=== PATIENT | female | born 1970 | race Caucasian/White ===

== ENCOUNTER 2017-01-08 13:45 | Emergency (ER) | payer MEDICAID ==
[~2017-01-08] VITALS: Wt 82.0 kg
[~2017-01-08 13:45] MED LIST: HYDR-762 PO; IBUP-1542 PO; PENI500T PO
--- NOTE | 2017-01-08 14:07 | ERD ---
ER Documentation Chief Complaint Chief Complaint L THUMB LAC TODAY HPI Patient presents one hour status post car door versus right thumb. Patient was getting out of the car when the door slammed on his. Tetanus status unknown. Denies loss of range of motion, numbness, tingling, change in sensation. Has not taken any medications to relieve the symptoms. Denies diabetes and asthma. Patient has no other complaints and describes no other associated manifestations. Nursing notes have been reviewed and are consistent with history given. ROS All systems reviewed and are negative except as per history of present illness. Medications Home Meds Active Scripts Cephalexin* (Keflex*) 500 Mg Capsule, 500 MG PO QID for 7 Days, CAP Prov:GLORIA EUGENE PA-C 01/08/17 Penicillin V Potassium* (Penicillin V K*) 500 Mg Tab, 500 MG PO QID for 7 Days, TAB Prov:SHERYL CRANE MD 04/20/15 Hydrocodone Bit-Acetaminophen* ([place]*) 10-325 Mg Tablet, 1 TAB PO Q6 Y for PAIN , #7 TAB Prov:SHERYL CRANE MD 04/20/15 Ibuprofen* (Motrin*) 600 Mg Tab, 600 MG PO Q6H Y for PAIN AND OR ELEVATED TEMP, #30 TAB Prov:SHERYL CRANE MD 04/20/15 Allergies Allergies: Coded Allergies: No Known Allergy (Unverified , 04/20/15) PMhx/Soc History of Surgery: No Anesthesia Reaction: No Hx Neurological Disorder: No Hx Respiratory Disorders: No Hx Cardiac Disorders: No Hx Psychiatric Problems: No Hx Miscellaneous Medical Probl: No Hx Alcohol Use: No Hx Substance Use: No Hx Tobacco Use: No Smoking Status: Never smoker Physical Exam Vitals Vital Signs Date Time Temp Pulse Resp B/P Pulse Ox O2 Delivery O2 Flow Rate FiO2 01/08/17 13:47 98.0 78 18 111/70 98 Physical Exam Const: No acute distress. Head: Atraumatic Eyes: Normal Conjunctiva ENT: Normal External Ears, Nose and Mouth. Neck: Full range of motion..~ No meningismus. Resp: Clear to auscultation bilaterally Cardio: Regular rate and rhythm, no murmurs Abd: Soft, non tender, non distended. Normal bowel sounds Skin: 4 cm lunar avulsion laceration to the right palmar side of thumb. Starting just distal to the DIP. Back: No midline or flank tenderness Ext: No cyanosis, or edema. Neurovascularly intact. Full range of motion. Tendons intact. Neur: Awake and alert Psych: Normal Mood and Affect Results 24 hrs Current Medications Medications (Trade) Dose Ordered Sig/Cristofer Route PRN Reason Start Time Stop Time Status Last Admin Dose Admin Lidocaine (Xylocaine 1% (Mdv) 20 ml) 20 ml ONCE ONCE SC 01/08/17 14:30 01/08/17 14:31 DC Diphtheria/ Tetanus/Acell Pertussis (Adacel) 0.5 ml ONCE ONCE IM* 01/08/17 14:30 01/08/17 14:31 DC 01/08/17 14:14 Cephalexin (Keflex) 500 mg ONCE ONCE PO 01/08/17 15:30 01/08/17 15:31 DC 01/08/17 15:38 Procedures/MDM 46-year-old female presenting one hour status post car door versus right thumb. X-ray was obtained and showed oblique nondisplaced fracture of the base of the distal phalanx. Laceration was superficial. Repaired with 6 4-0 nylon simple sutures. No complications. Neurovascularly and tendons intact before and after the procedure. Cap refill less than 2 seconds. I have no suspicion for neurovascular compromise. Metal splint has been applied. Neurovascularly intact after application. Keflex 500 mg p.o. was given in the ED. Prescription for Keflex 500 mg p.o. twice daily 7 days was given. I presented the case my attending Dr. Garza who agrees with the assessment and plan. Departure Diagnosis: Primary Impression: Laceration Condition: Stable Additional Instructions: You were seen in the emergency department for your laceration which has been closed. Your wound has been cleaned and covered with antibiotic ointment. Please keep this dressing on for 12 hours. After 12 hours take the dressing down and gently clean the wound with ONLY soap and water. If you were given antibiotics, complete the course of treatment as prescribed. Look for signs of infection such as increasing redness, swelling, pain or drainage of pus (yellow/ green fluid). If you see signs of infection, please return to the emergency department immediately. If there are no signs of infection, cover your wound with antibiotic ointment and reapply a dressing. You will form a scar. To keep from scarring too dark, keep your wound covered and out of the sun for the next 6-12 months. Consider using OTC anti-scar creams such as Mederma. Return to the ED for a wound check in 2 days and again for suture removal in 10-14 days. GLORIA EUGENE PA-C Jan 08, 2017 14:07
[2017-01-08] MEDS ORDERED: LIDOCAINE 1% (MDV) 20 ML INJ SC ONE (14:30)
[2017-01-08] MEDS ORDERED: DIPHTH/TET/ACEL PERTUSS (ADULT) 0.5 ML VIAL IM* ONE (14:30)
--- NOTE | 2017-01-08 14:49 | RADRPT ---
PROCEDURE: XR Right Thumb CLINICAL INDICATION: Trauma TECHNIQUE: AP, oblique, and lateral radiographs were submitted. COMPARISON: None FINDINGS: Osseous structures: An oblique nondisplaced fracture is seen through the proximal shaft of the dista l phalanx of the right thumb. The remaining osseous elements appear intact. Joint spaces: are well maintained, with no significant spurring, erosion or joint effusion evident. Soft tissues: appear unremarkable. IMPRESSION: Nondisplaced oblique fracture through base of distal phalanx of the right thumb. Physician Jasmina Date Time Electronically viewed and signed by Physician Jasmina on 01/08/2017 14:49 /
[2017-01-08] MEDS ORDERED: CEPHALEXIN 500 MG CAP PO ONE (15:30)
[2017-01-08] MEDS ORDERED: CEPH-443 PO (15:37)
== END 2017-01-08 16:01 | disposition home or self-care (01) ==
LOC: FTE 13:45
DX: S61.011A Laceration without foreign body of right thumb without damage to nail, initial encounter (principal); W23.0XXA Caught, crushed, jammed, or pinched between moving objects, initial encounter; Y92.9 Unspecified place or not applicable; Z23 Encounter for immunization
CPT/HCPCS: 12002; 73140; 90471; 90715; Z7502; Z7610

== ENCOUNTER 2017-01-19 10:39 | Emergency (ER) | payer MEDICAID ==
[~2017-01-19] VITALS: Ht 149.9 cm; Wt 80.9 kg
[~2017-01-19 10:39] MED LIST changes: +CEPH-443 PO
[2017-01-19 10:42] VITALS: Ht 149.9 cm; Wt 80.9 kg
--- NOTE | 2017-01-19 13:43 | ERD ---
ER Documentation Chief Complaint Chief Complaint pt bib self for suture removal to right thumb, HPI 46-year-old female here for removal of sutures in her right thumb. Patient sustained injury to her right thumb on 01/08/2017. Still have pain under her nail bed, and at the interphalangeal joint of the right thumb. Denies fever chills. Denies wound erythema or exudates. ROS All systems reviewed and are negative except as per history of present illness. Medications Home Meds Active Scripts Cephalexin* (Keflex*) 500 Mg Capsule, 500 MG PO QID for 7 Days, CAP Prov:GLORIA EUGENE PA-C 01/08/17 Penicillin V Potassium* (Penicillin V K*) 500 Mg Tab, 500 MG PO QID for 7 Days, TAB Prov:SHERYL CRANE MD 04/20/15 Hydrocodone Bit-Acetaminophen* ([place]*) 10-325 Mg Tablet, 1 TAB PO Q6 Y for PAIN , #7 TAB Prov:SHERYL CRANE MD 04/20/15 Ibuprofen* (Motrin*) 600 Mg Tab, 600 MG PO Q6H Y for PAIN AND OR ELEVATED TEMP, #30 TAB Prov:SHERYL CRANE MD 04/20/15 Allergies Allergies: Coded Allergies: No Known Allergy (Unverified , 04/20/15) PMhx/Soc Medical and Surgical Hx: pt denies Medical Hx, pt denies Surgical Hx History of Surgery: No Anesthesia Reaction: No Hx Neurological Disorder: No Hx Respiratory Disorders: No Hx Cardiac Disorders: No Hx Psychiatric Problems: No Hx Miscellaneous Medical Probl: No Hx Alcohol Use: No Hx Substance Use: No Hx Tobacco Use: No Smoking Status: Never smoker Physical Exam Vitals Vital Signs Date Time Temp Pulse Resp B/P Pulse Ox O2 Delivery O2 Flow Rate FiO2 01/19/17 10:42 98.3 71 18 158/76 98 Physical Exam General: Well-developed, well-nourished, conscious and coherent, in no distress Skin: Warm and dry without rash, good texture and turgor Head: Normocephalic without evidence of trauma Eyes: Sclera and conjunctivae normal; pupils equal, round, and reactive to light; extraocular movements are intact Chest: Normal AP diameter. Good expansion without retractions. Nontender. Lungs are clear to auscultate bilaterally with good tidal volume Heart: Regular rate and rhythm. No murmur, rub, or gallops heard Abdomen: Soft and nontender without masses, guarding, or rebound. Bowel sounds are active. No hepatosplenomegaly Back: Without spinal or CVA tenderness Pelvis: Nontender to palpation and stable to compression Extremities: A flap of skin at the ventral aspect of the right thumb, overlying the distal phalanx. The flap has retracted from the sutures. Old subungual hematoma noted, which large amount of dried blood under the nail. Limited range of motion at the interphalangeal joint of the right thumb. Full range of motion otherwise. Good strength bilaterally. No clubbing, cyanosis, or edema. Peripheral pulses are intact. Sensation intact Neuro: Alert and oriented 4, GCS 15. Cranial nerves grossly intact. Motor and sensory exams nonfocal. Moves all extremities. Speech clear. Gait normal Procedures/MDM Suture Removal by me: Sutures removed with tweezers and scissors without incident. Wound shows no evidence of infection, foreign body, neurologic injury, vascular injury, open joint or tendon laceration. I removed the skin using scissors. Review of patient medical record indicated the patient had a fracture at the base of the distal phalanx. She is not wearing her finger splint. I placed the splint back on the patient, and advised her to keep the splint on at all times. Patient appears well, stable for discharge and outpatient management. Medical decision making shared with patient and family. Education provided to patient and family. Patient and family expressed understanding of the plan. Medications on discharge: None. Follow-up: Primary care provider in 2-3 days or return to ED if worse. Disclaimer: Inadvertent spelling and grammatical errors are likely due to EHR/ dictation software use and do not reflect on the overall quality of patient care. Also, please note that the electronic time recorded on this note does not necessarily reflect the actual time of the patient encounter. Departure Diagnosis: Primary Impression: Encounter for removal of sutures Condition: Stable Patient Instructions: Suture Removal, No Complication [facility]errals: [facility] Usted se ulloa hecho un examen mdico de control que le indica que no est en inés condicin que requiera tratamiento urgente en el Departamento de Emergencia. Un estudio ms profundo y el tratamiento de chopra condicin pueden esperar sin ningn riesgo hasta que usted sea atendida/o en el consultorio de chopra mdico o inés cl blayne. Es responsabilidad suya arreglar inés rubén para el seguimiento del sania. MANEJO DE CONDICIONES NO URGENTES EN EL FUTURO 1) Si usted tiene un mdico de atencin primaria: Usted debera llamar a chopra mdico de atencin primaria antes de venir al departamento de emergencia. Despus de las horas de consultorio, chopra doctor o chopra asociado/a est disponible por telfono. El mdico o enfermero de eloisa en el servicio telefnico puede asesorarle por biju medio para atender el problema, o sania contrario se puede programar inés rubén. 2) Si usted no tiene un mdico de atencin primaria: Llame al mdico o clnica de referencia que aparece abajo kera las horas de consultorio para hacer inés rubén para que le vean. CLINICAS: [place] [id number] [phone] [facility] [phone] [facility]. [facility] [phone] [facility]. [place] [id number] [phone] [facility]. [place] [id number] [phone] [facility]. [phone] [address] Additional Instructions: Llame al doctor MAANA y wm inés RUBÉN PARA DENTRO DE 2-3 SMALL.Dgale a la secretaria que nosotros le instruimos hacer esta rubén.Avise o llame si chopra condicin se empeora antes de la rubén. Regresa aqui si peor o no mejor. IGNACIA FONG NP Jan 19, 2017 13:34
== END 2017-01-19 12:41 | disposition home or self-care (01) ==
LOC: FTE 10:39
DX: Z48.02 Encounter for removal of sutures (principal)
CPT/HCPCS: 99281

== ENCOUNTER 2018-05-29 08:33 | Inpatient (IN) | payer MEDICAID ==
[~2018-05-29] VITALS: Ht 152.4 cm; Wt 83.0 kg
[2018-05-29] MEDS ORDERED: ONDANSETRON 4 MG INJ IV STA ×2 (08:55→12:49)
[2018-05-29] MEDS ORDERED: morphine 4 MG/ML VIAL IV STA (08:55)
[2018-05-29] MEDS ORDERED: PIPER-TAZO 3.375 GM IV (PMX) 100 ML IVPB STA (11:00)
[2018-05-29] MEDS ORDERED: SODIUM CHLORIDE 0.9% 1L BAG IV* STA (11:00)
[2018-05-29] MEDS ORDERED: ASPI1TAB31 PO (11:39)
[2018-05-29] MEDS ORDERED: IBUP-1982 PO (11:40)
[2018-05-29] MEDS ORDERED: ACETAMINOPHEN 650 MG SUPP PR PRN (12:00)
[2018-05-29] MEDS ORDERED: NACL 0.9% 3 ML SYG IV SCH (12:00)
[2018-05-29] MEDS ORDERED: ACETAMINOPHEN 325 MG TAB PO PRN (12:00)
[2018-05-29] MEDS ORDERED: ONDANSETRON 4 MG INJ IV PRN (12:00)
--- NOTE | 2018-05-29 12:24 | ERD ---
ER Documentation Chief Complaint Chief Complaint ap x 3 days HPI Patient is a 47-year-old female with a history of migraine headaches who presents with abdominal pain. The patient says that she has left lower quadrant abdominal pain for the past 3 days. The pain comes and goes. She tried Tylenol for pain. She has had fevers as well. She denies vomiting or diarrhea. Upon review of old medical records this is the patient's seventh visit to the ER since 2011. Her primary doctor is Dr. Lentz. ROS All systems reviewed and are negative except as per history of present illness. Medications Home Meds Reported Medications Ibuprofen* (Ibuprofen*) 200 Mg Capsule, 200 MG PO NEEDED PRN for PAIN, CAP 05/29/18 Aspirin/Acetaminophen/Caffeine (Excedrin Migraine Caplet) 1 Each Tablet, 1 EACH PO NEEDED, TAB 05/29/18 Discontinued Scripts Cephalexin* (Keflex*) 500 Mg Capsule, 500 MG PO QID for 7 Days, CAP Prov:GLORIA EUGENE PA-C 01/08/17 Penicillin V Potassium* (Penicillin V K*) 500 Mg Tab, 500 MG PO QID for 7 Days, TAB Prov:SHERYL CRANE MD 04/20/15 Hydrocodone Bit-Acetaminophen* ([place]*) 10-325 Mg Tablet, 1 TAB PO Q6 PRN for PAIN, #7 TAB Prov:SHERYL CRANE MD 04/20/15 Ibuprofen* (Motrin*) 600 Mg Tab, 600 MG PO Q6H PRN for PAIN AND OR ELEVATED TEMP, #30 TAB Prov:SHERYL CRANE MD 04/20/15 Allergies Allergies: Coded Allergies: No Known Allergy (Unverified , 05/29/18) PMhx/Soc History of Surgery: No Anesthesia Reaction: No Hx Neurological Disorder: Yes (migraines) Hx Respiratory Disorders: No Hx Cardiac Disorders: No Hx Psychiatric Problems: No Hx Miscellaneous Medical Probl: No Hx Alcohol Use: No Hx Substance Use: No Hx Tobacco Use: No Smoking Status: Never smoker FmHx Family History: No diabetes Physical Exam Vitals Vital Signs Date Temp Pulse Resp B/P (MAP) Pulse Ox O2 O2 Flow FiO2 Time Delivery Rate 05/29/18 100.2 90 16 177/101 98 Room Air 11:55 (126) 05/29/18 98.8 90 18 145/78 99 08:35 (100) Physical Exam Const: No acute distress Head: Atraumatic Eyes: Normal Conjunctiva ENT: Normal External Ears, Nose and Mouth. Neck: Full range of motion. No meningismus. Resp: Clear to auscultation bilaterally Cardio: Regular rate and rhythm, no murmurs Abd: Soft, left lower quadrant tenderness to palpation with guarding Skin: No petechiae or rashes Back: No midline or flank tenderness Ext: No cyanosis, or edema Neur: Awake and alert Psych: Normal Mood and Affect Result Diagram: 05/29/18 0858 05/29/18 0858 Results 24 hrs Laboratory Tests Test 05/29/18 08:58 05/29/18 11:23 White Blood Count 13.3 10^3/ul Red Blood Count 4.74 10^6/ul Hemoglobin 13.3 g/dl Hematocrit 40.4 % Mean Corpuscular Volume 85.2 fl Mean Corpuscular Hemoglobin 28.1 pg Mean Corpuscular Hemoglobin Concent 32.9 g/dl Red Cell Distribution Width 12.8 % Platelet Count 249 10^3/UL Mean Platelet Volume 9.9 fl Immature Granulocytes % 0.700 % Neutrophils % 78.9 % Lymphocytes % 13.8 % Monocytes % 5.4 % Eosinophils % 0.9 % Basophils % 0.3 % Nucleated Red Blood Cells % 0.0 /100WBC Immature Granulocytes # 0.090 10^3/ul Neutrophils # 10.5 10^3/ul Lymphocytes # 1.8 10^3/ul Monocytes # 0.7 10^3/ul Eosinophils # 0.1 10^3/ul Basophils # 0.0 10^3/ul Nucleated Red Blood Cells # 0.0 10^3/ul Prothrombin Time 12.8 Sec Prothrombin Time Ratio 1.0 INR International Normalized Ratio 0.95 Activated Partial Thromboplast Time 38.8 Sec Urine Color YELLOW Urine Clarity CLEAR Urine pH 6.0 Urine Specific [place] 1.015 Urine Ketones NEGATIVE mg/dL Urine Nitrite NEGATIVE mg/dL Urine Bilirubin NEGATIVE mg/dL Urine Urobilinogen NEGATIVE mg/dL Urine Leukocyte Esterase NEGATIVE [place]/ul Urine Microscopic RBC 0 /HPF Urine Microscopic WBC 0 /HPF Urine Hemoglobin 2+ mg/dL Urine Glucose NEGATIVE mg/dL Urine Total Protein NEGATIVE mg/dl Sodium Level 145 mmol/L Potassium Level 3.5 mmol/L Chloride Level 104 mmol/L Carbon Dioxide Level 27 mmol/L Anion Gap 14 Blood Urea Nitrogen 9 mg/dl Creatinine 0.72 mg/dl Est Glomerular Filtrat Rate mL/min > 60 mL/min Glucose Level 174 mg/dl Calcium Level 9.0 mg/dl Total Bilirubin 1.0 mg/dl Direct Bilirubin 0.00 mg/dl Indirect Bilirubin 1.0 mg/dl Aspartate Amino Transf (AST/SGOT) 16 IU/L Alanine Aminotransferase (ALT/SGPT) 7 IU/L Alkaline Phosphatase 99 IU/L Total Protein 7.7 g/dl Albumin 4.1 g/dl Globulin 3.60 g/dl Albumin/Globulin Ratio 1.13 Lipase 67 U/L Serum HCG, Qualitative NEGATIVE Lactic Acid Level 0.8 mmol/L Current Medications Medications Dose Sig/Cristofer Start Time Status Last (Trade) Ordered Route PRN Stop Time Admin Dose Reason Admin Morphine 4 mg ONCE STAT 05/29/18 DC 05/29/18 Sulfate IV 08:55 09:01 (morphine) 05/29/18 08:56 Ondansetron 4 mg ONCE STAT 05/29/18 DC 05/29/18 HCl (Zofran IV 08:55 09:01 Inj) 05/29/18 08:56 Sodium 2,670 ml BOLUS OVER 2 05/29/18 DC 05/29/18 Chloride HOURS STAT 11:00 11:26 (NS) IV* 05/29/18 11:01 Piperacillin 100 ml @ ONCE STAT 05/29/18 DC 05/29/18 Sod/ 200 mls/hr IVPB 11:00 11:45 Tazobactam 05/29/18 11:29 Sod Ondansetron 4 mg BRIDGE ORDER 05/29/18 HCl (Zofran PRN IV 12:00 Inj) NAUSEA/VOMITI 05/30/18 11:59 NG 650 mg ER BRIDGE 05/29/18 Acetaminophen PRN PO 12:00 (Tylenol .MILD PAIN 05/30/18 11:59 Tab) 1-3 OR TEMP 50 ml @ Q8 IVPB 05/29/18 Meropenem/Sod 100 mls/hr 14:00 ium Chloride Sodium 1,000 ml @ Q10H IV 05/29/18 Chloride 100 mls/hr 11:34 IV Flush 3 ml PER 05/29/18 (NS 3 ml) PROTOCOL IV 12:00 Ondansetron 4 mg Q6H PRN 05/29/18 HCl (Zofran IV 12:00 Inj) NAUSEA/VOMITI NG 650 mg Q6H PRN 05/29/18 Acetaminophen AL .PAIN 1-3 12:00 (Tylenol OR TEMP Supp) Morphine 2 mg Q4H PRN 05/29/18 Sulfate IV .SEVERE 12:00 (morphine) PAIN 7-10 Famotidine 20 mg Q12 IV 05/29/18 (Pepcid Iv) 21:00 Procedures/MDM CT abdomen pelvis shows acute diverticulitis with localized perforation per radiology. Chest x-ray read by radiology. EKG read by me: Rate/Rhythm: Regular rate and rhythm at a normal rate Intervals: Normal Impression: No evidence of ischemia or arrhythmia Patient is a 47-year-old female who presents with perforated diverticulitis. Blood cultures were drawn and lactic acid was normal. The patient was given 30 mils per kilogram normal saline bolus as fluid resuscitation and Zosyn empirically. The patient will be admitted to the panel team. Dr. Pearl will see the patient for surgical evaluation. At this point I doubt sepsis. Critical Care: Time: 35 minutes excluding all billable procedures. Treatments/Evaluations: Close monitoring and treatment of unstable vital signs, cardiorespiratory, and neurologic status, while maintaining tight balance of fluid, respiratory, and cardiac interventions. Departure Diagnosis: Primary Impression: Perforation of cecum due to diverticulitis Additional Impression: Abdominal pain Abdominal location: left lower quadrant Qualified Codes: R10.32 - Left lower quadrant pain Condition: SHERYL Perrin MD May 29, 2018 12:24
[2018-05-29] MEDS ORDERED: ACETAMINOPHEN 325 MG TAB PO ONE (12:30)
--- NOTE | 2018-05-29 12:48 | HP ---
Date/Time of Note Date/Time of Note DATE: 05/29/18 TIME: 12:14 Assessment/Plan VTE Prophylaxis SCD applied (from Nsg): Yes Pharmacological prophylaxis: NA/contraindicated Pharm contraindication: low risk/ambulating Lines/Catheters IV Catheter Type (from Nrsg): Saline Lock Assessment/Plan Hospital Course SUBJECTIVE: seen patient in er 15.angie 10/10 pain on left side of her abdomen. has a low grade temp. OBJECTIVE: Vital signs-see below PHYSICAL EXAM: Constitutional: Well-developed, adequately built, lying in bed comfortably. Psych: nl mood/affect, no complaints Head: atraumatic, normocephalic Eyes: nl conjunctiva, nl sclera ENMT: mucosa pink and moist, nl external ears & nose Neck: non-tender, supple Respiratory: clear to auscultation, normal air movement Cardiovascular: nl pulses, regular rate and rhythm Gastrointestinal: +Tenderness LLQ.No rebound. Abdomen soft,BS active all 4 quad rants Musculoskeletal/extremities: nl extremities to inspection, motor strength equal bilaterally, no focal deficit. Normal pulses,no cyanosis, no edema. Neurological: Alert oriented 3,nl speech, nl strength Skin: nl turgor ASSESSMENT/PLAN: 47 yo w/migraine headaches here w/3 day duration of left sided abd pain w/fevers/headaches found to have acute diverticulitis w/possible perforation and HTN 1. Acute colonic diverticulitis with possible perforation. -Start IV Merrem, IVFs, PRN Pain meds, antipyretics,surgical consult w/ 2.Hypertension,likely pain induced -Again treat pain appropriately and assess for need for antihypertensives. 3. Migraine headaches -PRN pain meds -1 dose Imitrex as she currently seems in a migraine attack. 4.Obesity -weight reduction advised DVT prophylaxis: SCDs PUD prophylaxis: Pepcid CODE STATUS: Full code Diet: npo Rest of the management depends on clinical course Approximately 60mins spent on this H&P Patient was seen in collaboration with Result Diagram: 05/29/18 0858 05/29/18 0858 Results 24hrs Laboratory Tests Test 05/29/18 08:58 05/29/18 11:23 White Blood Count 13.3 H Red Blood Count 4.74 Hemoglobin 13.3 Hematocrit 40.4 Mean Corpuscular Volume 85.2 Mean Corpuscular Hemoglobin 28.1 L Mean Corpuscular Hemoglobin Concent 32.9 Red Cell Distribution Width 12.8 Platelet Count 249 Mean Platelet Volume 9.9 Immature Granulocytes % 0.700 H Neutrophils % 78.9 H Lymphocytes % 13.8 L Monocytes % 5.4 Eosinophils % 0.9 Basophils % 0.3 Nucleated Red Blood Cells % 0.0 Immature Granulocytes # 0.090 H Neutrophils # 10.5 H Lymphocytes # 1.8 Monocytes # 0.7 Eosinophils # 0.1 Basophils # 0.0 Nucleated Red Blood Cells # 0.0 Prothrombin Time 12.8 Prothrombin Time Ratio 1.0 INR International Normalized Ratio 0.95 Activated Partial Thromboplast Time 38.8 H Urine Color YELLOW Urine Clarity CLEAR Urine pH 6.0 Urine Specific [place] 1.015 Urine Ketones NEGATIVE Urine Nitrite NEGATIVE Urine Bilirubin NEGATIVE Urine Urobilinogen NEGATIVE Urine Leukocyte Esterase NEGATIVE Urine Microscopic RBC 0 Urine Microscopic WBC 0 Urine Hemoglobin 2+ H Urine Glucose NEGATIVE Urine Total Protein NEGATIVE Sodium Level 145 H Potassium Level 3.5 Chloride Level 104 Carbon Dioxide Level 27 Anion Gap 14 H Blood Urea Nitrogen 9 Creatinine 0.72 Est Glomerular Filtrat Rate mL/min > 60 Glucose Level 174 Calcium Level 9.0 Total Bilirubin 1.0 Direct Bilirubin 0.00 Indirect Bilirubin 1.0 Aspartate Amino Transf (AST/SGOT) 16 Alanine Aminotransferase (ALT/SGPT) 7 L Alkaline Phosphatase 99 Total Protein 7.7 Albumin 4.1 Globulin 3.60 H Albumin/Globulin Ratio 1.13 Lipase 67 Serum HCG, Qualitative NEGATIVE Lactic Acid Level 0.8 HPI/ROS Admit Date/Time Admit Date/Time Hx of Present Illness 47 yo Khmer speaking female with a hx of migraine headaches presented to ER w/3 day duration of left lower quadrant abdominal pain associated with subjective fevers and headaches.Patient denies cp, sob, palpitation, n/v,diarrh ea, constipation, melena,chills,dizziness, loss of consciousness or others. In ER pt has elevated WBC 13,300, TEMP 100.2,BP 177/[address] finding of acute colonic diverticulitis w/possible perforation. Patient has pain 10/10 on LLQ.She was given Zosyn,morphine 4mg and IVFs in ER.Surgery consult w/. requested from ER. ROS A 12 point ROS was done and is negative other than what is mentioned in HPI PMH/Family/Social Past Medical History see HPI Medications Current Medications Ondansetron HCl (Zofran Inj) 4 mg BRIDGE ORDER PRN IV NAUSEA/VOMITING; Start 05/29/18 at 12:00; Stop 05/30/18 at 11:59 Acetaminophen (Tylenol Tab) 650 mg ER BRIDGE PRN PO .MILD PAIN 1-3 OR TEMP; Start 05/29/18 at 12:00; Stop 05/30/18 at 11:59 Meropenem/Sodium Chloride 50 ml @ 100 mls/hr Q8 IVPB ; Start 05/29/18 at 14:00 Sodium Chloride 1,000 ml @ 100 mls/hr Q10H IV ; Start 05/29/18 at 11:34 IV Flush (NS 3 ml) 3 ml PER PROTOCOL IV ; Start 05/29/18 at 12:00 Ondansetron HCl (Zofran Inj) 4 mg Q6H PRN IV NAUSEA/VOMITING; Start 05/29/18 at 12:00 Acetaminophen (Tylenol Supp) 650 mg Q6H PRN ME .PAIN 1-3 OR TEMP; Start 05/29/18 at 12:00 Morphine Sulfate (morphine) 2 mg Q4H PRN IV .SEVERE PAIN 7-10; Start 05/29/18 at 12:00 Famotidine (Pepcid Iv) 20 mg Q12 IV ; Start 05/29/18 at 21:00 Coded Allergies: No Known Allergy (Unverified , 05/29/18) Past Surgical History none Social History no hx alcohol,smoking or illicit drugs Smoking Status: Never smoker Exam/Review of Systems Vital Signs Vitals Vital Signs Date Temp Pulse Resp B/P (MAP) Pulse Ox O2 O2 Flow FiO2 Time Delivery Rate 05/29/18 100.2 90 16 177/101 98 Room Air 11:55 (126) MELIDA MANZANO NP May 29, 2018 12:26
[2018-05-29] MEDS ORDERED: HYDROmorphONE 2 MG/ML SYG IV STA (12:49)
[2018-05-29] MEDS ORDERED: LABETALOL HCL 20MG INJ IV ONE (13:00)
[2018-05-29] MEDS ORDERED: SUMATRIPTAN 6 MG/0.5 ML INJ SC ONE (13:00)
[2018-05-29 14:35] VITALS: BP 144/71; PULSE 86; RESP 16
[2018-05-29 15:00] VITALS: Ht 152.4 cm; Wt 83.0 kg
[2018-05-29] MEDS: SOD CHLORIDE 0.9% 1,000 ML IV SCH ×2 (15:04→23:20)
--- NOTE | 2018-05-29 15:10 | CONS ---
Assessment/Plan Assessment/Plan Hospital Course (Demo Recall) CT scan was performed in the emergency room that showed there is a microperforation of the sigmoid diverticulitis without free air and without significant collection that can be suitable for drainage. White blood count was 13,000, patient has been hemodynamically stable, surgical consultation is requested. Problems: (1) Diverticulitis large intestine Qualifiers: Qualified Codes: K57.20 - Diverticulitis of large intestine with perforation and abscess without bleeding Assessment/Plan (Daily) 47-year-old female presented with first episode of acute diverticulitis with microperforation without abscess and without peritonitis. Patient is hemodynamically stable. There is no evidence of sepsis sepsis. Patient will benefit from IV antibiotics and observation. There is no indication for urgent surgical exploration. Will follow. Consultation Date/Type/Reason Admit Date/Time Date of Consultation: May 29, 2018 Type of Consult Surgical Reason for Consultation Acute diverticulitis. Covering for Dr. Moyer Date/Time of Note DATE: 05/29/18 TIME: 15:05 Hx of Present Illness Patient is a 47-year-old female with a history of migraine headaches who presents with abdominal pain. The patient says that she has left lower quadrant abdominal pain for the past 3 days. The pain comes and goes. She tried Tylenol for pain. She has had fevers as well. She denies vomiting or diarrhea. Constitutional: no complaints, improved Eyes: no complaints ENT: no complaints Respiratory: no complaints Cardiovascular: no complaints Gastrointestinal: no complaints, pain, decreased appetite, nausea Genitourinary: no complaints Musculoskeletal: no complaints Skin: no complaints Neurologic: headache Endocrine: no complaints Lymphatic: no complaints Psychological: no complaints, nl mood/affect Immunologic: no complaints Past Medical History Medical History: other (Migraine) Home Meds Reported Medications Ibuprofen* (Ibuprofen*) 200 Mg Capsule, 200 MG PO NEEDED PRN for PAIN, CAP 05/29/18 Aspirin/Acetaminophen/Caffeine (Excedrin Migraine Caplet) 1 Each Tablet, 1 EACH PO NEEDED, TAB 05/29/18 Discontinued Scripts Cephalexin* (Keflex*) 500 Mg Capsule, 500 MG PO QID for 7 Days, CAP Prov:GLORIA EUGENE PA-C 01/08/17 Penicillin V Potassium* (Penicillin V K*) 500 Mg Tab, 500 MG PO QID for 7 Days, TAB Prov:SHERYL CRANE MD 04/20/15 Hydrocodone Bit-Acetaminophen* ([place]*) 10-325 Mg Tablet, 1 TAB PO Q6 PRN for PAIN, #7 TAB Prov:SHERYL CRANE MD 04/20/15 Ibuprofen* (Motrin*) 600 Mg Tab, 600 MG PO Q6H PRN for PAIN AND OR ELEVATED TEMP, #30 TAB Prov:SHERYL CRANE MD 04/20/15 Medications Current Medications Ondansetron HCl (Zofran Inj) 4 mg BRIDGE ORDER PRN IV NAUSEA/VOMITING; Start 05/29/18 at 12:00; Stop 05/30/18 at 11:59 Acetaminophen (Tylenol Tab) 650 mg ER BRIDGE PRN PO .MILD PAIN 1-3 OR TEMP; Start 05/29/18 at 12:00; Stop 05/30/18 at 11:59 Meropenem/Sodium Chloride 50 ml @ 100 mls/hr Q8 IVPB ; Start 05/29/18 at 14:00 Sodium Chloride 1,000 ml @ 100 mls/hr Q10H IV ; Start 05/29/18 at 11:34 IV Flush (NS 3 ml) 3 ml PER PROTOCOL IV ; Start 05/29/18 at 12:00 Ondansetron HCl (Zofran Inj) 4 mg Q6H PRN IV NAUSEA/VOMITING; Start 05/29/18 at 12:00 Acetaminophen (Tylenol Supp) 650 mg Q6H PRN [place] .PAIN 1-3 OR TEMP; Start 05/29/18 at 12:00 Morphine Sulfate (morphine) 2 mg Q4H PRN IV .SEVERE PAIN 7-10; Start 05/29/18 at 12:00 Famotidine (Pepcid Iv) 20 mg Q12 IV ; Start 05/29/18 at 21:00 Acetaminophen (Tylenol Tab) 650 mg Q6H PRN PO MILD PAIN(1-3)OR ELEVATED TEMP; Start 05/29/18 at 12:30 Allergies: Coded Allergies: No Known Allergy (Unverified , 05/29/18) Past Surgical History Past Surgical Hx: no surgical history Family History Significant Family History: no pertinent family hx Social History Smoking Status: Never smoker Exam/Review of Systems Exam Vitals Vital Signs Date Temp Pulse Resp B/P (MAP) Pulse Ox O2 O2 Flow FiO2 Time Delivery Rate 05/29/18 98.7 80 18 122/72 100 Nasal 13:52 (89) Cannula Constitutional: alert, oriented, well developed Psych: no complaints, nl mood/affect Head: normocephalic, atraumatic Eyes: nl conjunctiva, EOMI, nl lids, nl sclera, PERRL ENMT: nl external ears & nose, nl lips & teeth, nl nasal mucosa & septum Neck: supple, non-tender Respiratory: clear to auscultation, normal air movement Cardiovascular: regular rate and rhythm, nl pulses Gastrointestinal: other (Abdomen is obese soft, there is a mild tenderness in the left lower quadrant with mild rebound. No organomegaly, no hernias.) Musculoskeletal: nl extremities to inspection, nl gait and stance Extremities: normal pulses Neurological: P[employer] II-XII intact, nl mental status, nl speech, nl strength Skin: nl turgor; No rash or lesions Lymph: nl lymph nodes Results Result Diagram: 05/29/18 0858 05/29/18 0858 Results 24hrs Laboratory Tests Test 05/29/18 08:58 05/29/18 11:23 White Blood Count 13.3 H Red Blood Count 4.74 Hemoglobin 13.3 Hematocrit 40.4 Mean Corpuscular Volume 85.2 Mean Corpuscular Hemoglobin 28.1 L Mean Corpuscular Hemoglobin Concent 32.9 Red Cell Distribution Width 12.8 Platelet Count 249 Mean Platelet Volume 9.9 Immature Granulocytes % 0.700 H Neutrophils % 78.9 H Lymphocytes % 13.8 L Monocytes % 5.4 Eosinophils % 0.9 Basophils % 0.3 Nucleated Red Blood Cells % 0.0 Immature Granulocytes # 0.090 H Neutrophils # 10.5 H Lymphocytes # 1.8 Monocytes # 0.7 Eosinophils # 0.1 Basophils # 0.0 Nucleated Red Blood Cells # 0.0 Prothrombin Time 12.8 Prothrombin Time Ratio 1.0 INR International Normalized Ratio 0.95 Activated Partial Thromboplast Time 38.8 H Urine Color YELLOW Urine Clarity CLEAR Urine pH 6.0 Urine Specific [place] 1.015 Urine Ketones NEGATIVE Urine Nitrite NEGATIVE Urine Bilirubin NEGATIVE Urine Urobilinogen NEGATIVE Urine Leukocyte Esterase NEGATIVE Urine Microscopic RBC 0 Urine Microscopic WBC 0 Urine Hemoglobin 2+ H Urine Glucose NEGATIVE Urine Total Protein NEGATIVE Sodium Level 145 H Potassium Level 3.5 Chloride Level 104 Carbon Dioxide Level 27 Anion Gap 14 H Blood Urea Nitrogen 9 Creatinine 0.72 Est Glomerular Filtrat Rate mL/min > 60 Glucose Level 174 Calcium Level 9.0 Total Bilirubin 1.0 Direct Bilirubin 0.00 Indirect Bilirubin 1.0 Aspartate Amino Transf (AST/SGOT) 16 Alanine Aminotransferase (ALT/SGPT) 7 L Alkaline Phosphatase 99 Total Protein 7.7 Albumin 4.1 Globulin 3.60 H Albumin/Globulin Ratio 1.13 Lipase 67 Serum HCG, Qualitative NEGATIVE Lactic Acid Level 0.8 Troponin I < 0.012 Medications Medication Current Medications Ondansetron HCl (Zofran Inj) 4 mg BRIDGE ORDER PRN IV NAUSEA/VOMITING; Start 05/29/18 at 12:00; Stop 05/30/18 at 11:59 Acetaminophen (Tylenol Tab) 650 mg ER BRIDGE PRN PO .MILD PAIN 1-3 OR TEMP; Start 05/29/18 at 12:00; Stop 05/30/18 at 11:59 Meropenem/Sodium Chloride 50 ml @ 100 mls/hr Q8 IVPB ; Start 05/29/18 at 14:00 Sodium Chloride 1,000 ml @ 100 mls/hr Q10H IV ; Start 05/29/18 at 11:34 IV Flush (NS 3 ml) 3 ml PER PROTOCOL IV ; Start 05/29/18 at 12:00 Ondansetron HCl (Zofran Inj) 4 mg Q6H PRN IV NAUSEA/VOMITING; Start 05/29/18 at 12:00 Acetaminophen (Tylenol Supp) 650 mg Q6H PRN [place] .PAIN 1-3 OR TEMP; Start 05/29/18 at 12:00 Morphine Sulfate (morphine) 2 mg Q4H PRN IV .SEVERE PAIN 7-10; Start 05/29/18 at 12:00 Famotidine (Pepcid Iv) 20 mg Q12 IV ; Start 05/29/18 at 21:00 Acetaminophen (Tylenol Tab) 650 mg Q6H PRN PO MILD PAIN(1-3)OR ELEVATED TEMP; Start 05/29/18 at 12:30 HAILEE GARCIA MD May 29, 2018 15:10
[2018-05-29] MEDS: MEROPENEM 1 GM/50ML(PMX) 50 ML IVPB SCH ×2 (15:12→23:19)
[2018-05-29 19:43] VITALS: BP 161/82; PULSE 85; RESP 18
[2018-05-29] MEDS: FAMOTIDINE 20 MG INJ IV SCH (20:39)
[2018-05-30] VITALS (9 sets, daily range): BP systolic 142–219; BP diastolic 66–110; PULSE 80–102; RESP 16–18
[2018-05-30] MEDS: ACETAMINOPHEN 325 MG TAB PO PRN ×2 (03:46→21:20)
[2018-05-30] MEDS: MEROPENEM 1 GM/50ML(PMX) 50 ML IVPB SCH ×3 (06:38→21:20)
[2018-05-30] MEDS ORDERED: INSULIN ASPART [NOVOLOG] 3 ML PEN SC SCH (09:00)
[2018-05-30] MEDS: FAMOTIDINE 20 MG INJ IV SCH (09:15)
[2018-05-30] MEDS: SOD CHLORIDE 0.9% 1,000 ML IV SCH ×3 (09:15→23:51)
[2018-05-30] MEDS ORDERED: GLUCAGON 1 MG INJ IM PRN (10:00)
[2018-05-30] MEDS ORDERED: DEXTROSE 50% 50 ML SYRINGE IV PRN ×2 (10:00)
[2018-05-30] MEDS ORDERED: GLUCOSE GEL 15 GRAM TUBE PO PRN ×2 (10:00)
[2018-05-30] MEDS ORDERED: GLUCOSE GEL 15 GRAM TUBE BUCCAL PRN (10:00)
--- NOTE | 2018-05-30 12:09 | PN ---
Date/Time of Note Date/Time of Note DATE: 05/30/18 TIME: 12:05 Assessment/Plan VTE Prophylaxis Risk score (from Nsg)>0 risk: 1 SCD applied (from Nsg): Yes Pharmacological prophylaxis: NA/contraindicated Pharm contraindication: low risk/ambulating Lines/Catheters IV Catheter Type (from Nrsg): Peripheral IV Urinary Cath still in place: No Assessment/Plan Hospital Course SUBJECTIVE: with improved abdominal pain. No nausea or vomiting. She is also feeling hungry and wants to eat. OBJECTIVE: Vital signs-see below PHYSICAL EXAM: Constitutional: Well-developed, adequately built, lying in bed comfortably. Psych: nl mood/affect, no complaints Head: atraumatic, normocephalic Eyes: nl conjunctiva, nl sclera ENMT: mucosa pink and moist, nl external ears & nose Neck: non-tender, supple Respiratory: clear to auscultation, normal air movement Cardiovascular: nl pulses, regular rate and rhythm Gastrointestinal: +LLQ tenderness-improved, no rebound. Abdomen soft,BS active all 4 quadrants Musculoskeletal/extremities: nl extremities to inspection, motor strength equal bilaterally, no focal deficit. Normal pulses,no cyanosis, no edema. Neurological: Alert oriented 3,nl speech, nl strength Skin: nl turgor ASSESSMENT/PLAN: 47 yo w/migraine headaches here w/3 day duration of left sided abd pain w/fevers/headaches found to have acute diverticulitis w/possible perforation and HTN 1. Acute colonic diverticulitis with possible microperforation. -Clinically improving. After discussion with surgeon Dr. Pearl,there is no surgical plan and we will start patient on a full liquid diet. -Continue IV meropenem with hopeful transition to oral Cipro and Flagyl for another 2 weeks. -Follow-up blood cultures. 2. Hypertension, pain induced versus essential hypertension. -Continue to monitor and administer pain medicine as needed. If consistently high, will consider starting patient on antihypertensives. 3. Migraine headaches -Stable 4.Obesity -weight reduction advised 5. New onset diabetes with A1c 6.5 -FBS>100, BMI>35.7 -DM education -Metformin on discharge. -DM education DVT prophylaxis: SCDs PUD prophylaxis: Pepcid CODE STATUS: Full code Diet: Liquids Disposition: Continue monitoring patient. Advance diet. Likely DC planning in a.m. if blood cultures are negative and patient with no further symptoms on oral antibiotics for 2 weeks duration. Patient was seen in collaboration with Result Diagram: 05/30/18 0433 05/30/18 0433 Results 24hrs Laboratory Tests Test 05/29/18 15:06 05/29/18 17:40 05/30/18 04:33 05/30/18 09:26 Lactic Acid Level 1.1 1.3 White Blood Count 9.7 # Red Blood Count 4.22 Hemoglobin 11.6 L Hematocrit 36.7 L Mean Corpuscular 87.0 Volume Mean Corpuscular 27.5 L Hemoglobin Mean Corpuscular 31.6 L Hemoglobin Concent Red Cell 13.1 Distribution Width Platelet Count 253 Mean Platelet Volume 10.0 Immature 0.400 Granulocytes % Neutrophils % 71.8 Lymphocytes % 19.1 Monocytes % 7.3 Eosinophils % 1.2 Basophils % 0.2 Nucleated Red Blood 0.0 Cells % Immature 0.040 H Granulocytes # Neutrophils # 6.9 Lymphocytes # 1.9 Monocytes # 0.7 Eosinophils # 0.1 Basophils # 0.0 Nucleated Red Blood 0.0 Cells # Sodium Level 143 Potassium Level 3.7 Chloride Level 104 Carbon Dioxide Level 29 Anion Gap 10 Blood Urea Nitrogen 6 L Creatinine 0.73 Est Glomerular > 60 Filtrat Rate mL/min Glucose Level 113 # Hemoglobin A1c 6.5 H Calcium Level 8.2 L Phosphorus Level 2.8 Magnesium Level 2.0 Total Bilirubin 0.8 Direct Bilirubin 0.00 Indirect Bilirubin 0.8 Aspartate Amino 15 Transf (AST/SGOT) Alanine 9 L Aminotransferase (AL T/SGPT) Alkaline Phosphatase 82 Total Protein 6.9 Albumin 3.5 Globulin 3.40 H Albumin/Globulin 1.02 Ratio Triglycerides Level 87 Cholesterol Level 132 LDL Cholesterol, 90 Calculated HDL Cholesterol 25 L Cholesterol/HDL 5.2 Ratio Bedside Glucose 104 Exam/Review of Systems Exam Vitals Vital Signs Date Temp Pulse Resp B/P (MAP) Pulse Ox O2 O2 Flow FiO2 Time Delivery Rate 05/30/18 98.4 80 18 164/76 96 Room Air 07:33 (105) Intake and Output 05/29/18 05/29/18 05/30/18 1515:00 23:00 07:00 IntakeIntake Total 200 ml 350 ml 1350 ml BalanceBalance 200 ml 350 ml 1350 ml Results Results 24hrs Laboratory Tests Test 05/29/18 15:06 05/29/18 17:40 05/30/18 04:33 05/30/18 09:26 Lactic Acid Level 1.1 1.3 White Blood Count 9.7 # Red Blood Count 4.22 Hemoglobin 11.6 L Hematocrit 36.7 L Mean Corpuscular 87.0 Volume Mean Corpuscular 27.5 L Hemoglobin Mean Corpuscular 31.6 L Hemoglobin Concent Red Cell 13.1 Distribution Width Platelet Count 253 Mean Platelet Volume 10.0 Immature 0.400 Granulocytes % Neutrophils % 71.8 Lymphocytes % 19.1 Monocytes % 7.3 Eosinophils % 1.2 Basophils % 0.2 Nucleated Red Blood 0.0 Cells % Immature 0.040 H Granulocytes # Neutrophils # 6.9 Lymphocytes # 1.9 Monocytes # 0.7 Eosinophils # 0.1 Basophils # 0.0 Nucleated Red Blood 0.0 Cells # Sodium Level 143 Potassium Level 3.7 Chloride Level 104 Carbon Dioxide Level 29 Anion Gap 10 Blood Urea Nitrogen 6 L Creatinine 0.73 Est Glomerular > 60 Filtrat Rate mL/min Glucose Level 113 # Hemoglobin A1c 6.5 H Calcium Level 8.2 L Phosphorus Level 2.8 Magnesium Level 2.0 Total Bilirubin 0.8 Direct Bilirubin 0.00 Indirect Bilirubin 0.8 Aspartate Amino 15 Transf (AST/SGOT) Alanine 9 L Aminotransferase (AL T/SGPT) Alkaline Phosphatase 82 Total Protein 6.9 Albumin 3.5 Globulin 3.40 H Albumin/Globulin 1.02 Ratio Triglycerides Level 87 Cholesterol Level 132 LDL Cholesterol, 90 Calculated HDL Cholesterol 25 L Cholesterol/HDL 5.2 Ratio Bedside Glucose 104 Medications Medication Current Medications Meropenem/Sodium Chloride 50 ml @ 100 mls/hr Q8 IVPB Last administered on 05/30/18at 06:38; Admin Dose 100 MLS/HR; Start 05/29/18 at 14:00 Sodium Chloride 1,000 ml @ 100 mls/hr Q10H IV Last administered on 05/30/18at 09:15; Admin Dose 100 MLS/HR; Start 05/29/18 at 11:34 IV Flush (NS 3 ml) 3 ml PER PROTOCOL IV ; Start 05/29/18 at 12:00 Ondansetron HCl (Zofran Inj) 4 mg Q6H PRN IV NAUSEA/VOMITING; Start 05/29/18 at 12:00 Acetaminophen (Tylenol Supp) 650 mg Q6H PRN [place] .PAIN 1-3 OR TEMP; Start 05/29/18 at 12:00 Morphine Sulfate (morphine) 2 mg Q4H PRN IV .SEVERE PAIN 7-10; Start 05/29/18 at 12:00 Famotidine (Pepcid Iv) 20 mg Q12 IV Last administered on 05/30/18at 09:15; Admin Dose 20 MG; Start 05/29/18 at 21:00 Acetaminophen (Tylenol Tab) 650 mg Q6H PRN PO MILD PAIN(1-3)OR ELEVATED TEMP Last administered on 05/30/18at 03:46; Admin Dose 650 MG; Start 05/29/18 at 12:30 Diagnostic Test (Pha) (Accu-Chek) 1 ea 02 XX ; Start 05/31/18 at 02:00 Insulin Aspart (Novolog Insulin Pen) NOVOLOG *MILD* ALGORI... Q4 SC ; Start 05/30/18 at 09:00 Miscellaneous Information 1 ea NOTE XX ; Start 05/30/18 at 10:00 Glucose (Glutose) 15 gm Q15M PRN PO DECREASED GLUCOSE; Start 05/30/18 at 10:00 Glucose (Glutose) 22.5 gm Q15M PRN PO DECREASED GLUCOSE; Start 05/30/18 at 10:00 Dextrose (D50w Syringe) 25 ml Q15M PRN IV DECREASED GLUCOSE; Start 05/30/18 at 10:00 Dextrose (D50w Syringe) 50 ml Q15M PRN IV DECREASED GLUCOSE; Start 05/30/18 at 10:00 Glucagon (Glucagen) 1 mg Q15M PRN IM DECREASED GLUCOSE; Start 05/30/18 at 10:00 Glucose (Glutose) 15 gm Q15M PRN BUCCAL DECREASED GLUCOSE; Start 05/30/18 at 10:00 MELIDA MANZANO NP May 30, 2018 12:09
[2018-05-30] MEDS ORDERED: KETOROLAC 15 MG INJ IV STA (15:28)
[2018-05-30] MEDS ORDERED: hydrALAzine 20 MG INJ IV ONE (15:30)
--- NOTE | 2018-05-30 15:43 | QN ---
Documentation Comment Patient with consistently high blood pressure now ranging in the 200s. She is also complaining of headache. At this time, administer Clonidine 1 dose and PRN hydralazine and transfer patient to telemetry.Start patient on Lisinopril 5mg daily. Obtain 2D echocardiogram and a CT brain. Case discussed with Dr. Wang. MELIDA MANZANO NP May 30, 2018 15:43
[2018-05-30] MEDS ORDERED: LISINOPRIL 5 MG TAB PO SCH (16:00)
[2018-05-30] MEDS ORDERED: AMLODIPINE 5 MG TAB PO SCH (16:00)
[2018-05-30] MEDS: INSULIN ASPART [NOVOLOG] 3 ML PEN SC SCH ×2 (17:55→21:00)
[2018-05-30] MEDS: hydrALAzine 20 MG INJ IV PRN (20:38)
[2018-05-30] MEDS: ACCU-CHEK XX SCH (22:45)
[2018-05-31 01:46] VITALS: BP 148/74; PULSE 80; RESP 20
[2018-05-31] MEDS: MEROPENEM 1 GM/50ML(PMX) 50 ML IVPB SCH ×3 (05:12→22:10)
[2018-05-31] MEDS: ACETAMINOPHEN 325 MG TAB PO PRN ×2 (05:12→11:23)
[2018-05-31] MEDS: hydrALAzine 20 MG INJ IV PRN (05:20)
[2018-05-31 06:31] VITALS: BP 124/57; PULSE 113; RESP 18
[2018-05-31 07:48] VITALS: BP 126/58; PULSE 115; RESP 18
[2018-05-31] MEDS: INSULIN ASPART [NOVOLOG] 3 ML PEN SC SCH ×4 (07:50→20:46)
[2018-05-31] MEDS: metFORMIN 500 MG TAB PO SCH (09:01)
[2018-05-31] MEDS: LISINOPRIL 5 MG TAB PO SCH (09:02)
[2018-05-31] MEDS: morphine 2 MG INJ IV PRN ×2 (09:03→20:43)
--- NOTE | 2018-05-31 09:09 | PN ---
Date/Time of Note Date/Time of Note DATE: 05/31/18 TIME: 08:58 Assessment/Plan VTE Prophylaxis Risk score (from Ns)>0 risk: 2 SCD applied (from Ns): Yes Pharmacological prophylaxis: NA/contraindicated Pharm contraindication: low risk/ambulating Lines/Catheters IV Catheter Type (from Nrsg): Peripheral IV Urinary Cath still in place: No Assessment/Plan Hospital Course SUBJECTIVE: Pt had uncontrolled HTN yesterday and a tele tx monitored bed was ordered yesterday which was not done for unclear reasons. She was receiving PRN Hydralazine in the unit and now w/ Tachycardia but asymptomatic..BP stabilized. Abdominal pain improved.. No nausea or vomiting. OBJECTIVE: Vital signs-see below PHYSICAL EXAM: Constitutional: Well-developed, adequately built, lying in bed comfortably. Psych: nl mood/affect, no complaints Head: atraumatic, normocephalic Eyes: nl conjunctiva, nl sclera ENMT: mucosa pink and moist, nl external ears & nose Neck: non-tender, supple Respiratory: clear to auscultation, normal air movement Cardiovascular: nl pulses, regular rate and rhythm Gastrointestinal: +Tenderness to LLQ-Improved, no rebound. Abdomen soft,BS active all 4 quadrants Musculoskeletal/extremities: nl extremities to inspection, motor strength equal bilaterally, no focal deficit. Normal pulses,no cyanosis, no edema. Neurological: Alert oriented 3,nl speech, nl strength Skin: nl turgor ASSESSMENT/PLAN: 47 yo w/migraine headaches here w/3 day duration of left sided abd pain w/fevers/headaches found to have acute diverticulitis w/possible perforation and HTN 1. Acute colonic diverticulitis with possible microperforation. -Clinically improving. -surgery following=>non-surgical -advance diet as tolerated, continue IV meropenem with hopeful transition to oral Cipro and Flagyl by tomorrow for another 2 weeks. -BC negative~48hrs. 2. Essential Hypertension -BP was uncontrolled yesterday likely 2/2 pain as she was reluctant to take pain meds. -Better control today but required 2 doses of IV hydralazine last nite. -Increase lisinopril to 10mg today -DC PRN hydralazine 2/2 reflex tachycardia. -f/u echo 3. Migraine headaches -Stable 4.Obesity -weight reduction advised 5. New onset diabetes with A1c 6.5 -FBS>100, BMI>35.7 -Stable glycemic trends-cont.accuchecks/ISS -DM education -Metformin on discharge. -DM education 6.Sinus tachycardia, likely reflex from vasodilators -EHG -Monitor. DVT prophylaxis: SCDs PUD prophylaxis: Pepcid CODE STATUS: Full code Diet: Liquids Disposition:Continue monitoring patient. Advance diet. If BP/HR stabilizes, likely DC in AM on oral antibiotics for 2 weeks duration. Patient was seen in collaboration with Result Diagram: 05/31/18 0439 05/31/18 0439 Results 24hrs Laboratory Tests Test 05/30/18 09:26 05/30/18 12:50 05/30/18 17:59 05/30/18 20:26 Bedside Glucose 104 88 75 95 Test 05/31/18 04:39 05/31/18 08:47 White Blood Count 9.0 Red Blood Count 4.66 Hemoglobin 12.7 Hematocrit 40.1 Mean Corpuscular 86.1 Volume Mean Corpuscular 27.3 L Hemoglobin Mean Corpuscular 31.7 L Hemoglobin Concent Red Cell 13.2 Distribution Width Platelet Count 301 Mean Platelet Volume 9.7 Immature 1.000 H Granulocytes % Neutrophils % 62.7 Lymphocytes % 26.1 Monocytes % 7.7 Eosinophils % 2.3 Basophils % 0.2 Nucleated Red Blood 0.0 Cells % Immature 0.090 H Granulocytes # Neutrophils # 5.6 Lymphocytes # 2.3 Monocytes # 0.7 Eosinophils # 0.2 Basophils # 0.0 Nucleated Red Blood 0.0 Cells # Sodium Level 144 Potassium Level 3.7 Chloride Level 102 Carbon Dioxide Level 29 Anion Gap 13 Blood Urea Nitrogen 10 Creatinine 0.70 Est Glomerular > 60 Filtrat Rate mL/min Glucose Level 86 Calcium Level 9.0 Bedside Glucose 90 Exam/Review of Systems Exam Vitals Vital Signs Date Temp Pulse Resp B/P (MAP) Pulse Ox O2 O2 Flow FiO2 Time Delivery Rate 05/31/18 98.0 115 18 126/58 92 Room Air 07:48 (80) Intake and Output 05/30/18 05/30/18 05/31/18 1414:59 22:59 06:59 IntakeIntake Total 450 ml 1170 ml 500 ml BalanceBalance 450 ml 1170 ml 500 ml Results Results 24hrs Laboratory Tests Test 05/30/18 09:26 05/30/18 12:50 05/30/18 17:59 05/30/18 20:26 Bedside Glucose 104 88 75 95 Test 05/31/18 04:39 05/31/18 08:47 White Blood Count 9.0 Red Blood Count 4.66 Hemoglobin 12.7 Hematocrit 40.1 Mean Corpuscular 86.1 Volume Mean Corpuscular 27.3 L Hemoglobin Mean Corpuscular 31.7 L Hemoglobin Concent Red Cell 13.2 Distribution Width Platelet Count 301 Mean Platelet Volume 9.7 Immature 1.000 H Granulocytes % Neutrophils % 62.7 Lymphocytes % 26.1 Monocytes % 7.7 Eosinophils % 2.3 Basophils % 0.2 Nucleated Red Blood 0.0 Cells % Immature 0.090 H Granulocytes # Neutrophils # 5.6 Lymphocytes # 2.3 Monocytes # 0.7 Eosinophils # 0.2 Basophils # 0.0 Nucleated Red Blood 0.0 Cells # Sodium Level 144 Potassium Level 3.7 Chloride Level 102 Carbon Dioxide Level 29 Anion Gap 13 Blood Urea Nitrogen 10 Creatinine 0.70 Est Glomerular > 60 Filtrat Rate mL/min Glucose Level 86 Calcium Level 9.0 Bedside Glucose 90 Medications Medication Current Medications Meropenem/Sodium Chloride 50 ml @ 100 mls/hr Q8 IVPB Last administered on 05/31/18at 05:12; Admin Dose 100 MLS/HR; Start 05/29/18 at 14:00 IV Flush (NS 3 ml) 3 ml PER PROTOCOL IV ; Start 05/29/18 at 12:00 Ondansetron HCl (Zofran Inj) 4 mg Q6H PRN IV NAUSEA/VOMITING; Start 05/29/18 at 12:00 Acetaminophen (Tylenol Supp) 650 mg Q6H PRN [place] .PAIN 1-3 OR TEMP; Start 05/29/18 at 12:00 Morphine Sulfate (morphine) 2 mg Q4H PRN IV .SEVERE PAIN 7-10; Start 05/29/18 at 12:00 Acetaminophen (Tylenol Tab) 650 mg Q6H PRN PO MILD PAIN(1-3)OR ELEVATED TEMP Last administered on 05/31/18at 05:12; Admin Dose 650 MG; Start 05/29/18 at 12:30 Diagnostic Test (Pha) (Accu-Chek) 1 ea 02 XX ; Start 05/31/18 at 02:00 Miscellaneous Information 1 ea NOTE XX ; Start 05/30/18 at 10:00 Glucose (Glutose) 15 gm Q15M PRN PO DECREASED GLUCOSE; Start 05/30/18 at 10:00 Glucose (Glutose) 22.5 gm Q15M PRN PO DECREASED GLUCOSE; Start 05/30/18 at 10:00 Dextrose (D50w Syringe) 25 ml Q15M PRN IV DECREASED GLUCOSE; Start 05/30/18 at 10:00 Dextrose (D50w Syringe) 50 ml Q15M PRN IV DECREASED GLUCOSE; Start 05/30/18 at 10:00 Glucagon (Glucagen) 1 mg Q15M PRN IM DECREASED GLUCOSE; Start 05/30/18 at 10:00 Glucose (Glutose) 15 gm Q15M PRN BUCCAL DECREASED GLUCOSE; Start 05/30/18 at 10:00 Insulin Aspart (Novolog Insulin Pen) NOVOLOG *MILD* ALGORITHM WITH MEALS BEDTIME SC ; Start 05/30/18 at 17:55 Metformin HCl (Glucophage) 500 mg WITH BREAKFAST PO ; Start 05/31/18 at 07:50 Sodium Chloride 1,000 ml @ 60 mls/hr [id number] IV Last administered on 05/30/18at 23:51; Admin Dose 60 MLS/HR; Start 05/30/18 at 16:00 Hydralazine HCl (Apresoline) 10 mg Q6H PRN IV SBP>160 Last administered on 05/31/18at 05:20; Admin Dose 10 MG; Start 05/30/18 at 16:00 Lisinopril (Zestril) 5 mg DAILY PO Last administered on 05/30/18at 17:54; Admin Dose 5 MG; Start 05/30/18 at 16:00 MELIDA MANZANO NP May 31, 2018 09:09
[2018-05-31] MEDS: ONDANSETRON 4 MG INJ IV PRN ×2 (14:20→22:53)
--- NOTE | 2018-05-31 14:23 | PN ---
Date/Time of Note Date/Time of Note DATE: 05/31/18 TIME: 14:20 Assessment/Plan Lines/Catheters IV Catheter Type (from [facility]): Peripheral IV Bello in Place (from [facility]): No Assessment/Plan Chief Complaint/Hosp Course Patient is day 3 of hospital stay after acute perforated diverticulitis. Patient is treated conservatively with antibiotics and bowel rest. The white count is going down. Patient feels subjectively better. Her exam is benign. Assessment/Plan Continue liquid diet and antibiotics. Do not see reason for acute surgical intervention. If her heart rate of 100 persist I would consider a repeat CT scan. Subjective 24 Hr Interval Summary Covering for Dr. Moyer. Patient is fourth day of hospitalization for acute perforated diverticulitis. Patient subjectively is doing better. She tolerates liquid diet secondary. She is still afebrile however however her heart rate is slightly about 1 congruent this morning. Constitutional: other (Headache) Feeding: clear Pain Control: mild Exam/Review of Systems Vital Signs Vitals Vital Signs Date Temp Pulse Resp B/P (MAP) Pulse Ox O2 O2 Flow FiO2 Time Delivery Rate 05/31/18 98.0 115 18 126/58 92 Room Air 07:48 (80) Intake and Output 05/30/18 05/30/18 05/31/18 1515:00 23:00 07:00 IntakeIntake Total 450 ml 1170 ml 500 ml BalanceBalance 450 ml 1170 ml 500 ml Exam Constitutional: alert, oriented, well developed Gastrointestinal: other (Abdomen is soft there is no tenderness in the left lower quadrant that I was impressed by 2 days ago.) Results Result Diagram: 05/31/18 0439 05/31/18 0439 HAILEE GARCIA MD May 31, 2018 14:23
[2018-05-31 14:41] VITALS: BP 134/72; PULSE 72; RESP 18
[2018-05-31] MEDS: SUMATRIPTAN 25 MG TAB PO PRN ×3 (15:12→20:20)
--- NOTE | 2018-05-31 18:00 | RADRPT ---
Echocardiogram Report Patient Name: Ivanna HENAOtient ID: [id number] : 1970 (47y 7m)Study Date: 05/31/2018 7:30:06 AM Gender: FAccession #: [id number] Tech: Pedro Astudillo RDCS Location: [id number] Ref.Physician: MELIDA MANZANO Height(Cm): BSA: Weight(Kg): Quality: AdequateAccount #: Procedures: Echocardiographic Report: Transthoracic echocardiogram with complete 2D, M-Mode, and doppler examination. Indications: Hypertension. Measurements: 2D/M Mode Doppler Measurement Value Normal Range Measurement Value Normal Range LVIDd 2D 4.0 [ 3.8 - 5.2 ] cm AV Mean Ravi 1.7 [ 70.0 - 90.0 ] cm/sec LVIDs 2D 1.6 [ 2.2 - 3.5 ] cm AV Mean PG 14.0 [ 2.0 - 4.0 ] mmHg LVPWd 2D 1.3 [ 0.6 - 0.9 ] cm AV VTI 42.9 cm IVSd 2D 1.5 [ 0.6 - 0.9 ] cm LVOT Mean Ravi 1.3 [ 60.0 - 80.0 ] cm/sec AoR Diam 2D 2.6 [ 2.3 - 3.1 ] cm LVOT Mean PG 8.0 [ 1.0 - 3.0 ] mmHg EDV 2D 68.3 [ 46.0 - 106.0 ] ml LVOT Peak Ravi 1.8 [ 70.0 - 110.0 ] cm/sec ESV 2D 6.9 [ 14.0 - 42.0 ] ml LVOT Peak PG 14.0 [ 2.0 - 6.0 ] mmHg EF 2D 89.8 [ 54.0 - 74.0 ] percent LVOT VTI 32.3 [ 20.0 - 30.0 ] cm LA Dimen 2D 3.0 [ 2.7 - 3.8 ] cm Findings: Left Ventricle: Hyperdynamic left ventricular systolic function. Normal left ventricular cavity size. Moderate concentric left ventricular hypertrophy. Ejection fraction is visually estimated at 70 %. Abnormal Diastolic Function. Right Ventricle: Normal right ventricular size. Normal right ventricular systolic function. Left Atrium: The left atrium is normal in size. Right Atrium: The right atrium is normal in size. Mitral Valve: Normal appearance and function of the mitral valve with trace physiologic regurgitation. Aortic Valve: Aortic sclerosis without significant stenosis. No aortic regurgitation. Tricuspid Valve: Normal appearance and function of the tricuspid valve with trace physiologic regurgitation. Pulmonic Valve: Normal pulmonic valve appearance. Pericardium: Normal pericardium with no significant pericardial effusion. Aorta: Normal aortic root. IVC: Normal size and normal respiratory collapse consistent with normal right atrial pressure. Conclusions: Hyperdynamic left ventricular systolic function. Normal left ventricular cavity size. Moderate concentric left ventricular hypertrophy. Ejection fraction is visually estimated at 70 %. Abnormal Diastolic Function. Normal right ventricular size. Normal right ventricular systolic function. The left atrium is normal in size. The right atrium is normal in size. No significant valvular stenosis or regurgitation seen. Normal pericardium with no significant pericardial effusion. Electronically Signed By: Tevin Castro 2018-05-31 17:59:37 PDT
--- NOTE | 2018-05-31 18:52 | RADRPT ---
Vent Rate: 109 bpm RR Interval: 0 msec [place] Interval: 140 msec QRS Duration: 84 msec QT Interval: 394 msec QTC Interval: 530 msec P-R-T [place]: 61 - 20 - 34 degrees Sinus tachycardia Possible Left atrial enlargement Nonspecific ST abnormality Abnormal ECG Electronically Signed By: Bert Calderon
[2018-05-31] MEDS: SOD CHLORIDE 0.9% 1,000 ML IV SCH (18:55)
[2018-05-31 21:33] VITALS: BP 190/80; PULSE 88; RESP 20
[2018-05-31] MEDS ORDERED: hydrALAzine 20 MG INJ IV ONE (21:54)
[2018-05-31 22:35] VITALS: BP 165/77; PULSE 103; RESP 20
[2018-06-01 01:06] VITALS: BP 160/70; PULSE 98; RESP 18
[2018-06-01] MEDS: ACCU-CHEK XX SCH (01:27)
[2018-06-01] MEDS: SUMATRIPTAN 25 MG TAB PO PRN ×4 (04:42→22:03)
[2018-06-01 04:45] VITALS: BP 145/60; RESP 20
[2018-06-01] MEDS: MEROPENEM 1 GM/50ML(PMX) 50 ML IVPB SCH ×3 (05:23→22:02)
[2018-06-01] MEDS: INSULIN ASPART [NOVOLOG] 3 ML PEN SC SCH ×4 (07:50→20:30)
[2018-06-01 08:23] VITALS: BP 163/93; PULSE 113; RESP 20
[2018-06-01] MEDS: metFORMIN 500 MG TAB PO SCH (08:43)
[2018-06-01] MEDS: LISINOPRIL 5 MG TAB PO SCH (08:45)
[2018-06-01] MEDS ORDERED: POTASSIUM CHLORIDE (SR) 20 MEQ TAB PO STA (11:48)
--- NOTE | 2018-06-01 12:02 | PN ---
Date/Time of Note Date/Time of Note DATE: 06/01/18 TIME: 11:55 Assessment/Plan VTE Prophylaxis Risk score (from Nsg)>0 risk: 1 SCD applied (from Nsg): Yes Pharmacological prophylaxis: NA/contraindicated Pharm contraindication: low risk/ambulating Lines/Catheters IV Catheter Type (from Nrsg): Peripheral IV Urinary Cath still in place: No Assessment/Plan Hospital Course SUBJECTIVE: Complains of worsening pain with eating. No fevers. Improved headache.. OBJECTIVE: Vital signs-see below PHYSICAL EXAM: Constitutional: Well-developed, adequately built, lying in bed comfortably. Psych: nl mood/affect, no complaints Head: atraumatic, normocephalic Eyes: nl conjunctiva, nl sclera ENMT: mucosa pink and moist, nl external ears & nose Neck: non-tender, supple Respiratory: clear to auscultation, normal air movement Cardiovascular: nl pulses, regular rate and rhythm Gastrointestinal: +LLQ tenderness, no rebound. Abdomen soft,BS active all 4 quadrants Musculoskeletal/extremities: nl extremities to inspection, motor strength equal bilaterally, no focal deficit. Normal pulses,no cyanosis, no edema. Neurological: Alert oriented 3,nl speech, nl strength Skin: nl turgor ASSESSMENT/PLAN: 47 yo w/migraine headaches here w/3 day duration of left sided and pain w/fevers/headaches found to have acute diverticulitis w/possible perforation and HTN 1. Acute colonic diverticulitis with possible microperforation. -LLQ pain gets worse with eating. Patient also had heart rate documented 113 this morning. At this time, defer surgery for need for rescanning indicated. -Continue IV meropenem -Add Flagyl -PRN pain meds 2. Essential hypertension -Blood pressure still elevated. At this time, will add Norvasc 2.5 mg and will increase lisinopril to 20 mg daily. -Patient also reluctant to take IV opiates for her abd pain which is also contributing to persistent hypertension 3. Headaches, likely from persistent hypertension and inflammatory process -Persists. MRI noted, normal study. -We will control blood pressure -PRN tylenol /NSAIDs. 4.Obesity -weight reduction advised 5. New onset diabetes with A1c 6.5 -FBS>100, BMI>35.7 -DM education -Metformin on discharge. -Accu-Cheks/ISS in-house. DVT prophylaxis: SCDs PUD prophylaxis: Pepcid CODE STATUS: Full code Diet: Liquids Disposition: Patient reports worsening pain with diet. She is also slightly tachycardic and hypertensive. Continue IV antibiotics. Add Flagyl. At this time, we will follow-up surgery recommendation to see whether patient needs to be rescanned or not. Patient was seen in collaboration with Result Diagram: 05/31/18 0439 06/01/18 0434 Results 24hrs Laboratory Tests Test 05/31/18 13:21 05/31/18 18:18 05/31/18 20:46 06/01/18 01:27 Bedside Glucose 88 77 88 120 Test 06/01/18 04:34 06/01/18 08:42 Sodium Level 142 Potassium Level 3.4 L Chloride Level 102 Carbon Dioxide Level 27 Anion Gap 13 Blood Urea Nitrogen 10 Creatinine 0.53 Est Glomerular > 60 Filtrat Rate mL/min Glucose Level 106 Calcium Level 8.3 L Bedside Glucose 84 Exam/Review of Systems Exam Vitals Vital Signs Date Temp Pulse Resp B/P (MAP) Pulse Ox O2 O2 Flow FiO2 Time Delivery Rate 06/01/18 98.1 113 20 163/93 97 08:23 (116) 06/01/18 Room Air 04:45 Intake and Output 05/31/18 05/31/18 06/01/18 1515:00 23:00 07:00 IntakeIntake Total 370 ml 1370 ml 720 ml OutputOutput Total 100 ml BalanceBalance 370 ml 1270 ml 720 ml Results Results 24hrs Laboratory Tests Test 05/31/18 13:21 05/31/18 18:18 05/31/18 20:46 06/01/18 01:27 Bedside Glucose 88 77 88 120 Test 06/01/18 04:34 06/01/18 08:42 Sodium Level 142 Potassium Level 3.4 L Chloride Level 102 Carbon Dioxide Level 27 Anion Gap 13 Blood Urea Nitrogen 10 Creatinine 0.53 Est Glomerular > 60 Filtrat Rate mL/min Glucose Level 106 Calcium Level 8.3 L Bedside Glucose 84 Medications Medication Current Medications Meropenem/Sodium Chloride 50 ml @ 100 mls/hr Q8 IVPB Last administered on 06/01/18at 05:23; Admin Dose 100 MLS/HR; Start 05/29/18 at 14:00 IV Flush (NS 3 ml) 3 ml PER PROTOCOL IV ; Start 05/29/18 at 12:00 Ondansetron HCl (Zofran Inj) 4 mg Q6H PRN IV NAUSEA/VOMITING Last administered on 05/31/18at 22:53; Admin Dose 4 MG; Start 05/29/18 at 12:00 Acetaminophen (Tylenol Supp) 650 mg Q6H PRN [place] .PAIN 1-3 OR TEMP; Start 05/29/18 at 12:00 Morphine Sulfate (morphine) 2 mg Q4H PRN IV .SEVERE PAIN 7-10 Last administered on 05/31/18at 20:43; Admin Dose 2 MG; Start 05/29/18 at 12:00 Acetaminophen (Tylenol Tab) 650 mg Q6H PRN PO MILD PAIN(1-3)OR ELEVATED TEMP Last administered on 05/31/18at 11:23; Admin Dose 650 MG; Start 05/29/18 at 12:30 Diagnostic Test (Pha) (Accu-Chek) 1 ea 02 XX Last administered on 06/01/18at 01:27; Admin Dose 1 EA; Start 05/31/18 at 02:00 Miscellaneous Information 1 ea NOTE XX ; Start 05/30/18 at 10:00 Glucose (Glutose) 15 gm Q15M PRN PO DECREASED GLUCOSE; Start 05/30/18 at 10:00 Glucose (Glutose) 22.5 gm Q15M PRN PO DECREASED GLUCOSE; Start 05/30/18 at 10:00 Dextrose (D50w Syringe) 25 ml Q15M PRN IV DECREASED GLUCOSE; Start 05/30/18 at 10:00 Dextrose (D50w Syringe) 50 ml Q15M PRN IV DECREASED GLUCOSE; Start 05/30/18 at 10:00 Glucagon (Glucagen) 1 mg Q15M PRN IM DECREASED GLUCOSE; Start 05/30/18 at 10:00 Glucose (Glutose) 15 gm Q15M PRN BUCCAL DECREASED GLUCOSE; Start 05/30/18 at 10:00 Insulin Aspart (Novolog Insulin Pen) NOVOLOG *MILD* ALGORITHM WITH MEALS BEDTIME SC ; Start 05/30/18 at 17:55 Metformin HCl (Glucophage) 500 mg WITH BREAKFAST PO Last administered on 06/01/18at 08:43; Admin Dose 500 MG; Start 05/31/18 at 07:50 Sodium Chloride 1,000 ml @ 60 mls/hr [id number] IV Last administered on 05/31/18at 18:55; Admin Dose 60 MLS/HR; Start 05/30/18 at 16:00 Lisinopril (Zestril) 10 mg DAILY PO Last administered on 06/01/18 08:45; Admin Dose 10 MG; Start 05/31/18 at 09:00 Sumatriptan Succinate (Imitrex) 25 mg PRN PRN PO HEADACHE Last administered on 06/01/18at 08:48; Admin Dose 25 MG; Start 05/31/18 at 16:00 MELIDA MANZANO NP Jun 01, 2018 12:02
[2018-06-01] MEDS ORDERED: LISINOPRIL 10 MG TAB PO ONE (12:30)
[2018-06-01] MEDS: AMLODIPINE 2.5 MG TAB PO SCH (12:51)
[2018-06-01] MEDS: ACETAMINOPHEN 325 MG TAB PO PRN (13:42)
[2018-06-01] MEDS ORDERED: BARIUM SULF 2% 450 ML BTL (BERRY SMOOTHIE) PO ONE (14:30)
[2018-06-01] MEDS: metroNIDAZOLE 500 MG TAB PO SCH ×2 (14:51→22:02)
[2018-06-01 15:16] VITALS: BP 133/78; PULSE 82; RESP 19
--- NOTE | 2018-06-01 15:36 | CONS ---
Assessment/Plan Assessment/Plan Hospital Course (Demo Recall) Hypertension Preserved ejection fraction Abdominal pain Diverticulitis with perforation Obesity -Patient presented with abdominal pain and found to have diverticulitis with perforation which is being treated conservatively -She has been noted to have episodes of elevated blood pressure. She is also having episodes of severe pain. On review of multiple hospital visits over the past few years, patient with history of elevated blood pressure on multiple visits. -Patient has been put on lisinopril and amlodipine, I would adjust lisinopril to twice daily dosing -I would also order hydralazine IV as needed -Of concomitant importance is proper pain control given this is likely one of the contributive factors to her uncontrolled blood pressure Consultation Date/Type/Reason Admit Date/Time Type of Consult Cardiology Reason for Consultation Hypertension Date/Time of Note DATE: 06/01/18 TIME: 15:30 Hx of Present Illness This is a 47-year-old female who presents with abdominal pain and found to have diverticulitis with perforation. Patient is being managed conservatively. She has been noted to have elevated blood pressure and for this reason cardiology consultation has been requested. She is complaining of intermittent severe abdominal pain. Her pain is currently better. She denies any shortness of breath, chest pain or palpitations at the current time. With deep breathing, she does get occasional chest and abdominal discomfort. Denies history of hy pertension 12 point review of systems was performed with all pertinent positives and negatives mentioned above and all else is negative Past Medical History Migraines Home Meds Reported Medications Ibuprofen* (Ibuprofen*) 200 Mg Capsule, 200 MG PO NEEDED PRN for PAIN, CAP 05/29/18 Aspirin/Acetaminophen/Caffeine (Excedrin Migraine Caplet) 1 Each Tablet, 1 EACH PO NEEDED, TAB 05/29/18 Discontinued Scripts Cephalexin* (Keflex*) 500 Mg Capsule, 500 MG PO QID for 7 Days, CAP Prov:GLORIA EUGENE PA-C 01/08/17 Penicillin V Potassium* (Penicillin V K*) 500 Mg Tab, 500 MG PO QID for 7 Days, TAB Prov:SHERYL CRANE MD 04/20/15 Hydrocodone Bit-Acetaminophen* (Stevenson*) 10-325 Mg Tablet, 1 TAB PO Q6 PRN for PAIN, #7 TAB Prov:SHERYL CRANE MD 04/20/15 Ibuprofen* (Motrin*) 600 Mg Tab, 600 MG PO Q6H PRN for PAIN AND OR ELEVATED TEMP, #30 TAB Prov:SHERYL CRANE MD 04/20/15 Medications Current Medications Meropenem/Sodium Chloride 50 ml @ 100 mls/hr Q8 IVPB Last administered on 06/01/18at 14:51; Admin Dose 100 MLS/HR; Start 05/29/18 at 14:00 IV Flush (NS 3 ml) 3 ml PER PROTOCOL IV ; Start 05/29/18 at 12:00 Ondansetron HCl (Zofran Inj) 4 mg Q6H PRN IV NAUSEA/VOMITING Last administered on 05/31/18at 22:53; Admin Dose 4 MG; Start 05/29/18 at 12:00 Acetaminophen (Tylenol Supp) 650 mg Q6H PRN [place] .PAIN 1-3 OR TEMP; Start 05/29/18 at 12:00 Morphine Sulfate (morphine) 2 mg Q4H PRN IV .SEVERE PAIN 7-10 Last administered on 05/31/18at 20:43; Admin Dose 2 MG; Start 05/29/18 at 12:00 Acetaminophen (Tylenol Tab) 650 mg Q6H PRN PO MILD PAIN(1-3)OR ELEVATED TEMP Last administered on 06/01/18at 13:42; Admin Dose 650 MG; Start 05/29/18 at 12:30 Diagnostic Test (Pha) (Accu-Chek) 1 ea 02 XX Last administered on 06/01/18at 01:27; Admin Dose 1 EA; Start 05/31/18 at 02:00 Miscellaneous Information 1 ea NOTE XX ; Start 05/30/18 at 10:00 Glucose (Glutose) 15 gm Q15M PRN PO DECREASED GLUCOSE; Start 05/30/18 at 10:00 Glucose (Glutose) 22.5 gm Q15M PRN PO DECREASED GLUCOSE; Start 05/30/18 at 10:00 Dextrose (D50w Syringe) 25 ml Q15M PRN IV DECREASED GLUCOSE; Start 05/30/18 at 10:00 Dextrose (D50w Syringe) 50 ml Q15M PRN IV DECREASED GLUCOSE; Start 05/30/18 at 10:00 Glucagon (Glucagen) 1 mg Q15M PRN IM DECREASED GLUCOSE; Start 05/30/18 at 10:00 Glucose (Glutose) 15 gm Q15M PRN BUCCAL DECREASED GLUCOSE; Start 05/30/18 at 10:00 Insulin Aspart (Novolog Insulin Pen) NOVOLOG *MILD* ALGORITHM WITH MEALS BEDTIME SC ; Start 05/30/18 at 17:55 Metformin HCl (Glucophage) 500 mg WITH BREAKFAST PO Last administered on 06/01/18at 08:43; Admin Dose 500 MG; Start 05/31/18 at 07:50 Sumatriptan Succinate (Imitrex) 25 mg PRN PRN PO HEADACHE Last administered on 06/01/18at 12:51; Admin Dose 25 MG; Start 05/31/18 at 16:00 Lisinopril (Zestril) 20 mg DAILY PO ; Start 06/02/18 at 09:00 Amlodipine Besylate (Norvasc) 2.5 mg DAILY PO Last administered on 06/01/18at 12:51; Admin Dose 2.5 MG; Start 06/01/18 at 12:30 Metronidazole (Flagyl) 500 mg Q8 PO Last administered on 06/01/18at 14:51; Admin Dose 500 MG; Start 06/01/18 at 14:00 Clonidine (Catapres) 0.1 mg Q6H PRN PO sbp>170; Start 06/01/18 at 14:30 Allergies: Coded Allergies: No Known Allergy (Unverified , 05/29/18) Past Surgical History Past Surgical Hx: no surgical history Family History Significant Family History: no pertinent family hx Social History Smoking Status: Never smoker Exam/Review of Systems Vital Signs Vitals Vital Signs Date Temp Pulse Resp B/P (MAP) Pulse Ox O2 O2 Flow FiO2 Time Delivery Rate 06/01/18 98.2 82 19 133/78 97 15:16 (96) 06/01/18 Room Air 04:45 Intake and Output 05/31/18 05/31/18 06/01/18 1515:00 23:00 07:00 IntakeIntake Total 370 ml 1370 ml 720 ml OutputOutput Total 100 ml BalanceBalance 370 ml 1270 ml 720 ml Exam Exam No apparent distress, no dyspnea with speaking Constitutional: alert, oriented Head: normocephalic Respiratory: other (Coarse breath sounds bilaterally, no wheezing) Cardiovascular: regular rate and rhythm (S1-S2 heard) Gastrointestinal: soft, bowel sounds, other (Discomfort with palpation) Extremities: edema (Trace) Labs Result Diagram: 05/31/18 0439 06/01/18 0434 Results 24hrs Laboratory Tests Test 05/31/18 18:18 05/31/18 20:46 06/01/18 01:27 06/01/18 04:34 Bedside Glucose 77 88 120 Sodium Level 142 Potassium Level 3.4 L Chloride Level 102 Carbon Dioxide Level 27 Anion Gap 13 Blood Urea Nitrogen 10 Creatinine 0.53 Est Glomerular > 60 Filtrat Rate mL/min Glucose Level 106 Calcium Level 8.3 L Test 06/01/18 08:42 06/01/18 12:44 Bedside Glucose 84 81 Medications Medications Current Medications Meropenem/Sodium Chloride 50 ml @ 100 mls/hr Q8 IVPB Last administered on 06/01/18at 14:51; Admin Dose 100 MLS/HR; Start 05/29/18 at 14:00 IV Flush (NS 3 ml) 3 ml PER PROTOCOL IV ; Start 05/29/18 at 12:00 Ondansetron HCl (Zofran Inj) 4 mg Q6H PRN IV NAUSEA/VOMITING Last administered on 05/31/18at 22:53; Admin Dose 4 MG; Start 05/29/18 at 12:00 Acetaminophen (Tylenol Supp) 650 mg Q6H PRN [place] .PAIN 1-3 OR TEMP; Start 05/29/18 at 12:00 Morphine Sulfate (morphine) 2 mg Q4H PRN IV .SEVERE PAIN 7-10 Last administered on 05/31/18at 20:43; Admin Dose 2 MG; Start 05/29/18 at 12:00 Acetaminophen (Tylenol Tab) 650 mg Q6H PRN PO MILD PAIN(1-3)OR ELEVATED TEMP Last administered on 06/01/18at 13:42; Admin Dose 650 MG; Start 05/29/18 at 12:30 Diagnostic Test (Pha) (Accu-Chek) 1 ea 02 XX Last administered on 06/01/18at 01:27; Admin Dose 1 EA; Start 05/31/18 at 02:00 Miscellaneous Information 1 ea NOTE XX ; Start 05/30/18 at 10:00 Glucose (Glutose) 15 gm Q15M PRN PO DECREASED GLUCOSE; Start 05/30/18 at 10:00 Glucose (Glutose) 22.5 gm Q15M PRN PO DECREASED GLUCOSE; Start 05/30/18 at 10:00 Dextrose (D50w Syringe) 25 ml Q15M PRN IV DECREASED GLUCOSE; Start 05/30/18 at 10:00 Dextrose (D50w Syringe) 50 ml Q15M PRN IV DECREASED GLUCOSE; Start 05/30/18 at 10:00 Glucagon (Glucagen) 1 mg Q15M PRN IM DECREASED GLUCOSE; Start 05/30/18 at 10:00 Glucose (Glutose) 15 gm Q15M PRN BUCCAL DECREASED GLUCOSE; Start 05/30/18 at 10:00 Insulin Aspart (Novolog Insulin Pen) NOVOLOG *MILD* ALGORITHM WITH MEALS BEDTIME SC ; Start 05/30/18 at 17:55 Metformin HCl (Glucophage) 500 mg WITH BREAKFAST PO Last administered on 06/01/18at 08:43; Admin Dose 500 MG; Start 05/31/18 at 07:50 Sumatriptan Succinate (Imitrex) 25 mg PRN PRN PO HEADACHE Last administered on 06/01/18at 12:51; Admin Dose 25 MG; Start 05/31/18 at 16:00 Lisinopril (Zestril) 20 mg DAILY PO ; Start 06/02/18 at 09:00 Amlodipine Besylate (Norvasc) 2.5 mg DAILY PO Last administered on 06/01/18at 12:51; Admin Dose 2.5 MG; Start 06/01/18 at 12:30 Metronidazole (Flagyl) 500 mg Q8 PO Last administered on 06/01/18at 14:51; Admin Dose 500 MG; Start 06/01/18 at 14:00 Clonidine (Catapres) 0.1 mg Q6H PRN PO sbp>170; Start 06/01/18 at 14:30 Gloria Castro DO Jun 01, 2018 15:36
[2018-06-01] MEDS: hydrALAzine 20 MG INJ IV PRN (15:56)
[2018-06-01] MEDS ORDERED: IOHEXOL 300MG/ML 150 ML BTL ONE (18:45)
[2018-06-01] MEDS ORDERED: SOD CHLORIDE 0.9% 100 ML ONE (18:45)
[2018-06-01 19:10] VITALS: BP 135/72; PULSE 96; RESP 20
[2018-06-01 19:48] VITALS: BP 135/70; PULSE 85; RESP 18
[2018-06-01] MEDS: LISINOPRIL 10 MG TAB PO SCH (20:29)
[2018-06-01] MEDS ORDERED: LUBIPROSTONE 24 MCG CAP PO SCH (21:00)
[2018-06-02] MEDS: ACCU-CHEK XX SCH ×2 (01:48→22:58)
[2018-06-02 02:20] VITALS: BP 170/80; PULSE 92; RESP 19
[2018-06-02] MEDS: MEROPENEM 1 GM/50ML(PMX) 50 ML IVPB SCH ×3 (06:00→21:50)
[2018-06-02] MEDS: metroNIDAZOLE 500 MG TAB PO SCH ×3 (06:00→21:50)
[2018-06-02] MEDS: ACETAMINOPHEN 325 MG TAB PO PRN ×2 (06:05→12:17)
[2018-06-02] MEDS: INSULIN ASPART [NOVOLOG] 3 ML PEN SC SCH ×4 (07:50→21:00)
[2018-06-02 08:00] VITALS: BP 129/66; PULSE 77; RESP 18
[2018-06-02] MEDS: metFORMIN 500 MG TAB PO SCH (08:28)
[2018-06-02] MEDS: LISINOPRIL 10 MG TAB PO SCH (08:29)
[2018-06-02] MEDS: AMLODIPINE 2.5 MG TAB PO SCH (08:30)
[2018-06-02] MEDS ORDERED: LISINOPRIL 20 MG TAB PO SCH (09:00)
--- NOTE | 2018-06-02 09:53 | PN ---
Date/Time of Note Date/Time of Note DATE: 06/02/18 TIME: 09:49 Assessment/Plan VTE Prophylaxis Risk score (from Ns)>0 risk: 1 SCD applied (from Ns): Yes SCD contraindicated: low risk/ambulating Pharmacological prophylaxis: heparin Lines/Catheters IV [facility]from [facility] Saline Lock Urinary Cath still in place: No Assessment/Plan Problems: (1) Perforation of cecum due to diverticulitis Onset Date: ~ 05/28/2018 Status: Acute Comment: She is improving with conservative treatment and antibiotics. Appreciate general surgery working with her and they will follow-up on the repeat CT scan. (2) Essential hypertension Status: Chronic Comment: This will need further adjustment of medications especially given the diastolic dysfunction on echocardiography. Push up on the ANNABEL inhibitor. (3) Diastolic dysfunction Status: Chronic Comment: Control via ANNABEL inhibitor and beta control blood pressure. May need to add a rate controlling medication (4) Hematuria Status: Acute Comment: Repeat urinalysis Qualifiers: Hematuria type: unspecified type Qualified Codes: R31.9 - Hematuria, unspecified (5) Migraine syndrome Status: Chronic Comment: She actually qualifies for prophylactic therapy based on her history. I will get her started on topiramate at this time. Please note this will also be beneficial for her weight (6) Obesity (BMI 30-39.9) Status: Chronic Comment: Calorie restriction diet Result Diagram: 06/02/18 0431 06/02/18 0431 Results 24hrs Laboratory Tests Test 06/01/18 12:44 06/01/18 17:49 06/01/18 20:27 06/02/18 04:31 Bedside Glucose 81 84 95 White Blood Count 7.4 Red Blood Count 4.55 Hemoglobin 12.6 Hematocrit 38.8 Mean Corpuscular 85.3 Volume Mean Corpuscular 27.7 L Hemoglobin Mean Corpuscular 32.5 Hemoglobin Concent Red Cell 13.0 Distribution Width Platelet Count 294 Mean Platelet Volume 9.7 Immature 0.900 H Granulocytes % Neutrophils % 66.0 Lymphocytes % 22.4 Monocytes % 8.0 Eosinophils % 2.3 Basophils % 0.4 Nucleated Red Blood 0.0 Cells % Immature 0.070 H Granulocytes # Neutrophils # 4.9 Lymphocytes # 1.7 Monocytes # 0.6 Eosinophils # 0.2 Basophils # 0.0 Nucleated Red Blood 0.0 Cells # Sodium Level 142 Potassium Level 3.9 Chloride Level 102 Carbon Dioxide Level 32 H Anion Gap 8 Blood Urea Nitrogen 10 Creatinine 0.63 Est Glomerular > 60 Filtrat Rate mL/min Glucose Level 87 Calcium Level 8.7 Test 06/02/18 08:19 Bedside Glucose 78 Subjective 24 Hr Interval Summary Free Text/Dictation Patient reports she still has some left lower quadrant pain but is significantly better than on admission, it does flare slightly when she is eating her diet but then settles down. Constitutional: no complaints (She denies any fevers any shaking chills or any drenching sweats) ENT: no complaints Respiratory: no complaints Cardiovascular: no complaints Gastrointestinal: pain (Left lower quadrant) Genitourinary: no complaints Musculoskeletal: no complaints Neurologic: no complaints (Regarding her migraines she gets 7-10 headache days per month) Exam/Review of Systems Exam Vitals Vital Signs Date Temp Pulse Resp B/P (MAP) Pulse Ox O2 O2 Flow FiO2 Time Delivery Rate 06/02/18 97.9 77 18 129/66 96 08:00 (87) 06/02/18 Room Air 02:20 Intake and Output 06/01/18 06/01/18 06/02/18 1515:00 23:00 07:00 IntakeIntake Total 240 ml 890 ml 550 ml OutputOutput Total 200 ml 200 ml BalanceBalance 240 ml 690 ml 350 ml Constitutional: alert, oriented Neck: supple, non-tender Respiratory: clear to auscultation, normal air movement Cardiovascular: regular rate and rhythm, nl pulses Gastrointestinal: soft, nl liver, spleen, tender (Mild non-rebound left lower quadrant tenderness without palpable mass) Results Results 24hrs Laboratory Tests Test 06/01/18 12:44 06/01/18 17:49 06/01/18 20:27 06/02/18 04:31 Bedside Glucose 81 84 95 White Blood Count 7.4 Red Blood Count 4.55 Hemoglobin 12.6 Hematocrit 38.8 Mean Corpuscular 85.3 Volume Mean Corpuscular 27.7 L Hemoglobin Mean Corpuscular 32.5 Hemoglobin Concent Red Cell 13.0 Distribution Width Platelet Count 294 Mean Platelet Volume 9.7 Immature 0.900 H Granulocytes % Neutrophils % 66.0 Lymphocytes % 22.4 Monocytes % 8.0 Eosinophils % 2.3 Basophils % 0.4 Nucleated Red Blood 0.0 Cells % Immature 0.070 H Granulocytes # Neutrophils # 4.9 Lymphocytes # 1.7 Monocytes # 0.6 Eosinophils # 0.2 Basophils # 0.0 Nucleated Red Blood 0.0 Cells # Sodium Level 142 Potassium Level 3.9 Chloride Level 102 Carbon Dioxide Level 32 H Anion Gap 8 Blood Urea Nitrogen 10 Creatinine 0.63 Est Glomerular > 60 Filtrat Rate mL/min Glucose Level 87 Calcium Level 8.7 Test 06/02/18 08:19 Bedside Glucose 78 Medications Medication Current Medications Meropenem/Sodium Chloride 50 ml @ 100 mls/hr Q8 IVPB Last administered on 06/02/18at 06:00; Admin Dose 100 MLS/HR; Start 05/29/18 at 14:00 IV Flush (NS 3 ml) 3 ml PER PROTOCOL IV ; Start 05/29/18 at 12:00 Ondansetron HCl (Zofran Inj) 4 mg Q6H PRN IV NAUSEA/VOMITING Last administered on 05/31/18at 22:53; Admin Dose 4 MG; Start 05/29/18 at 12:00 Acetaminophen (Tylenol Supp) 650 mg Q6H PRN [place] .PAIN 1-3 OR TEMP; Start 05/29/18 at 12:00 Morphine Sulfate (morphine) 2 mg Q4H PRN IV .SEVERE PAIN 7-10 Last administered on 05/31/18at 20:43; Admin Dose 2 MG; Start 05/29/18 at 12:00 Acetaminophen (Tylenol Tab) 650 mg Q6H PRN PO MILD PAIN(1-3)OR ELEVATED TEMP Last administered on 06/02/18at 06:05; Admin Dose 650 MG; Start 05/29/18 at 12:30 Diagnostic Test (Pha) (Accu-Chek) 1 ea 02 XX Last administered on 06/01/18at 01:27; Admin Dose 1 EA; Start 05/31/18 at 02:00 Miscellaneous Information 1 ea NOTE XX ; Start 05/30/18 at 10:00 Glucose (Glutose) 15 gm Q15M PRN PO DECREASED GLUCOSE; Start 05/30/18 at 10:00 Glucose (Glutose) 22.5 gm Q15M PRN PO DECREASED GLUCOSE; Start 05/30/18 at 10:00 Dextrose (D50w Syringe) 25 ml Q15M PRN IV DECREASED GLUCOSE; Start 05/30/18 at 10:00 Dextrose (D50w Syringe) 50 ml Q15M PRN IV DECREASED GLUCOSE; Start 05/30/18 at 10:00 Glucagon (Glucagen) 1 mg Q15M PRN IM DECREASED GLUCOSE; Start 05/30/18 at 10:00 Glucose (Glutose) 15 gm Q15M PRN BUCCAL DECREASED GLUCOSE; Start 05/30/18 at 10:00 Insulin Aspart (Novolog Insulin Pen) NOVOLOG *MILD* ALGORITHM WITH MEALS BEDTIME SC ; Start 05/30/18 at 17:55 Metformin HCl (Glucophage) 500 mg WITH BREAKFAST PO Last administered on 06/02/18 08:28; Admin Dose 500 MG; Start 05/31/18 at 07:50 Sumatriptan Succinate (Imitrex) 25 mg PRN PRN PO HEADACHE Last administered on 06/01/18at 22:03; Admin Dose 25 MG; Start 05/31/18 at 16:00 Amlodipine Besylate (Norvasc) 2.5 mg DAILY PO Last administered on 06/02/18at 08:30; Admin Dose 2.5 MG; Start 06/01/18 at 12:30 Metronidazole (Flagyl) 500 mg Q8 PO Last administered on 06/02/18 06:00; Admin Dose 500 MG; Start 06/01/18 at 14:00 Clonidine (Catapres) 0.1 mg Q6H PRN PO sbp>170 Last administered on 06/02/18at 02:24; Admin Dose 0.1 MG; Start 06/01/18 at 14:30 Hydralazine HCl (Apresoline) 10 mg Q4H PRN IV sbp>165 Last administered on 06/01/18at 15:56; Admin Dose 10 MG; Start 06/01/18 at 15:30 Lisinopril (Zestril) 20 mg BID PO ; Start 06/02/18 at 21:00 Topiramate (Topamax) 25 mg BID PO ; Start 06/02/18 at 21:00 LAY PENA MD Jun 02, 2018 09:53
[2018-06-02 14:00] VITALS: BP 127/70; PULSE 66; RESP 18
[2018-06-02 20:00] VITALS: BP 181/89; PULSE 82; RESP 18
[2018-06-02] MEDS: TOPIRAMATE 25 MG TAB PO SCH (20:34)
[2018-06-02] MEDS: LISINOPRIL 20 MG TAB PO SCH (20:35)
[2018-06-02 22:05] VITALS: BP 174/77; PULSE 76; RESP 18
[2018-06-03] VITALS (7 sets, daily range): BP systolic 132–202; BP diastolic 58–107; PULSE 70–106; RESP 16–18
[2018-06-03] MEDS: ACETAMINOPHEN 325 MG TAB PO PRN (02:03)
[2018-06-03] MEDS: MEROPENEM 1 GM/50ML(PMX) 50 ML IVPB SCH ×3 (05:10→21:31)
[2018-06-03] MEDS: metroNIDAZOLE 500 MG TAB PO SCH ×3 (05:12→21:30)
[2018-06-03] MEDS: INSULIN ASPART [NOVOLOG] 3 ML PEN SC SCH ×4 (07:50→20:42)
[2018-06-03] MEDS: metFORMIN 500 MG TAB PO SCH (08:27)
[2018-06-03] MEDS: AMLODIPINE 2.5 MG TAB PO SCH (08:28)
[2018-06-03] MEDS: TOPIRAMATE 25 MG TAB PO SCH ×2 (08:28→20:19)
[2018-06-03] MEDS: LISINOPRIL 20 MG TAB PO SCH ×2 (08:28→20:19)
--- NOTE | 2018-06-03 08:57 | PN ---
Date/Time of Note Date/Time of Note DATE: 06/03/18 TIME: 08:54 Assessment/Plan VTE Prophylaxis Risk score (from Ns)>0 risk: 2 SCD applied (from Ns): Yes Pharmacological prophylaxis: heparin Lines/Catheters [facility] Saline Lock Urinary Cath still in place: No Assessment/Plan Problems: (1) Perforation of cecum due to diverticulitis Onset Date: ~ 05/28/2018 Status: Acute Comment: Improved significantly. Need input from general reimbursement consultant about when patient should be discharged I suspect she might be able to be discharged today (2) Migraine syndrome Status: Chronic Comment: Stable on prophylactic therapy as of now (3) Hematuria Status: Resolved Comment: Repeat testing demonstrates no hematuria, no further evaluation Qualifiers: Hematuria type: unspecified type Qualified Codes: R31.9 - Hematuria, unspecified (4) Obesity (BMI 30-39.9) Status: Chronic Comment: Counseled. Please note the topiramate from migraines will help with this (5) Essential hypertension Status: Chronic Comment: Adjusting medications. Please note I am not in favor of the dihydropyridine calcium channel amanda given the headaches and will use atenolol with ANNABEL inhibitor. (6) Diastolic dysfunction Status: Chronic Comment: Atenolol with ANNABEL inhibitor Result Diagram: 06/03/18 0437 06/03/18 0437 Results 24hrs Laboratory Tests Test 06/02/18 12:24 06/02/18 15:00 06/02/18 17:39 06/02/18 20:29 Bedside Glucose 80 71 75 Urine Color YELLOW Urine Clarity CLEAR Urine pH 7.0 Urine Specific 1.006 [place] Urine Ketones 1+ H Urine Nitrite NEGATIVE Urine Bilirubin NEGATIVE Urine Urobilinogen NEGATIVE Urine Leukocyte NEGATIVE Esterase Urine Hemoglobin NEGATIVE Urine Glucose NEGATIVE Urine Total Protein NEGATIVE Test 06/03/18 04:37 06/03/18 08:00 White Blood Count 7.5 Red Blood Count 4.70 Hemoglobin 13.0 Hematocrit 39.4 Mean Corpuscular 83.8 Volume Mean Corpuscular 27.7 L Hemoglobin Mean Corpuscular 33.0 Hemoglobin Concent Red Cell 12.9 Distribution Width Platelet Count 317 Mean Platelet Volume 9.7 Immature 0.700 H Granulocytes % Neutrophils % 53.0 Lymphocytes % 34.6 Monocytes % 7.8 Eosinophils % 3.6 Basophils % 0.3 Nucleated Red Blood 0.0 Cells % Immature 0.050 H Granulocytes # Neutrophils # 4.0 Lymphocytes # 2.6 Monocytes # 0.6 Eosinophils # 0.3 Basophils # 0.0 Nucleated Red Blood 0.0 Cells # Erythrocyte 48 H Sedimentation Rate Sodium Level 142 Potassium Level 3.7 Chloride Level 103 Carbon Dioxide Level 32 H Anion Gap 7 Blood Urea Nitrogen 10 Creatinine 0.67 Est Glomerular > 60 Filtrat Rate mL/min Glucose Level 86 Calcium Level 8.9 Total Bilirubin 0.5 Direct Bilirubin 0.00 Indirect Bilirubin 0.5 Aspartate Amino 26 Transf (AST/SGOT) Alanine 17 Aminotransferase (AL T/SGPT) Alkaline Phosphatase 77 Total Protein 7.1 Albumin 3.7 Globulin 3.40 H Albumin/Globulin 1.08 Ratio Bedside Glucose 78 Subjective 24 Hr Interval Summary Free Text/Dictation Reports she is feeling much better today. Ambulating freely in the hallways Constitutional: no complaints Respiratory: no complaints Cardiovascular: no complaints Gastrointestinal: pain (Minimal) Genitourinary: no complaints Exam/Review of Systems Exam Vitals Vital Signs Date Temp Pulse Resp B/P (MAP) Pulse Ox O2 O2 Flow FiO2 Time Delivery Rate 06/03/18 98.0 73 18 141/89 96 08:09 (106) 06/02/18 Room Air 02:20 Intake and Output 06/02/18 06/02/18 06/03/18 1414:59 22:59 06:59 IntakeIntake Total 650 ml 50 ml 750 ml BalanceBalance 650 ml 50 ml 750 ml Constitutional: alert, oriented Respiratory: clear to auscultation, normal air movement Cardiovascular: regular rate and rhythm, nl pulses Gastrointestinal: soft, nl liver, spleen, non-tender Results Results 24hrs Laboratory Tests Test 06/02/18 12:24 06/02/18 15:00 06/02/18 17:39 06/02/18 20:29 Bedside Glucose 80 71 75 Urine Color YELLOW Urine Clarity CLEAR Urine pH 7.0 Urine Specific 1.006 [place] Urine Ketones 1+ H Urine Nitrite NEGATIVE Urine Bilirubin NEGATIVE Urine Urobilinogen NEGATIVE Urine Leukocyte NEGATIVE Esterase Urine Hemoglobin NEGATIVE Urine Glucose NEGATIVE Urine Total Protein NEGATIVE Test 06/03/18 04:37 06/03/18 08:00 White Blood Count 7.5 Red Blood Count 4.70 Hemoglobin 13.0 Hematocrit 39.4 Mean Corpuscular 83.8 Volume Mean Corpuscular 27.7 L Hemoglobin Mean Corpuscular 33.0 Hemoglobin Concent Red Cell 12.9 Distribution Width Platelet Count 317 Mean Platelet Volume 9.7 Immature 0.700 H Granulocytes % Neutrophils % 53.0 Lymphocytes % 34.6 Monocytes % 7.8 Eosinophils % 3.6 Basophils % 0.3 Nucleated Red Blood 0.0 Cells % Immature 0.050 H Granulocytes # Neutrophils # 4.0 Lymphocytes # 2.6 Monocytes # 0.6 Eosinophils # 0.3 Basophils # 0.0 Nucleated Red Blood 0.0 Cells # Erythrocyte 48 H Sedimentation Rate Sodium Level 142 Potassium Level 3.7 Chloride Level 103 Carbon Dioxide Level 32 H Anion Gap 7 Blood Urea Nitrogen 10 Creatinine 0.67 Est Glomerular > 60 Filtrat Rate mL/min Glucose Level 86 Calcium Level 8.9 Total Bilirubin 0.5 Direct Bilirubin 0.00 Indirect Bilirubin 0.5 Aspartate Amino 26 Transf (AST/SGOT) Alanine 17 Aminotransferase (AL T/SGPT) Alkaline Phosphatase 77 Total Protein 7.1 Albumin 3.7 Globulin 3.40 H Albumin/Globulin 1.08 Ratio Bedside Glucose 78 Medications Medication Current Medications Meropenem/Sodium Chloride 50 ml @ 100 mls/hr Q8 IVPB Last administered on 06/03/18at 05:10; Admin Dose 100 MLS/HR; Start 05/29/18 at 14:00 IV Flush (NS 3 ml) 3 ml PER PROTOCOL IV ; Start 05/29/18 at 12:00 Ondansetron HCl (Zofran Inj) 4 mg Q6H PRN IV NAUSEA/VOMITING Last administered on 05/31/18at 22:53; Admin Dose 4 MG; Start 05/29/18 at 12:00 Acetaminophen (Tylenol Supp) 650 mg Q6H PRN [place] .PAIN 1-3 OR TEMP; Start 05/29/18 at 12:00 Morphine Sulfate (morphine) 2 mg Q4H PRN IV .SEVERE PAIN 7-10 Last administered on 05/31/18at 20:43; Admin Dose 2 MG; Start 05/29/18 at 12:00 Acetaminophen (Tylenol Tab) 650 mg Q6H PRN PO MILD PAIN(1-3)OR ELEVATED TEMP Last administered on 06/03/18 02:03; Admin Dose 650 MG; Start 05/29/18 at 12:30 Diagnostic Test (Pha) (Accu-Chek) 1 ea 02 XX Last administered on 06/01/18at 01:27; Admin Dose 1 EA; Start 05/31/18 at 02:00 Miscellaneous Information 1 ea NOTE XX ; Start 05/30/18 at 10:00 Glucose (Glutose) 15 gm Q15M PRN PO DECREASED GLUCOSE; Start 05/30/18 at 10:00 Glucose (Glutose) 22.5 gm Q15M PRN PO DECREASED GLUCOSE; Start 05/30/18 at 10:00 Dextrose (D50w Syringe) 25 ml Q15M PRN IV DECREASED GLUCOSE; Start 05/30/18 at 10:00 Dextrose (D50w Syringe) 50 ml Q15M PRN IV DECREASED GLUCOSE; Start 05/30/18 at 10:00 Glucagon (Glucagen) 1 mg Q15M PRN IM DECREASED GLUCOSE; Start 05/30/18 at 10:00 Glucose (Glutose) 15 gm Q15M PRN BUCCAL DECREASED GLUCOSE; Start 05/30/18 at 10:00 Insulin Aspart (Novolog Insulin Pen) NOVOLOG *MILD* ALGORITHM WITH MEALS BEDTIME SC ; Start 05/30/18 at 17:55 Metformin HCl (Glucophage) 500 mg WITH BREAKFAST PO Last administered on 06/03/18at 08:27; Admin Dose 500 MG; Start 05/31/18 at 07:50 Sumatriptan Succinate (Imitrex) 25 mg PRN PRN PO HEADACHE Last administered on 06/01/18at 22:03; Admin Dose 25 MG; Start 05/31/18 at 16:00 Amlodipine Besylate (Norvasc) 2.5 mg DAILY PO Last administered on 06/03/18at 08:28; Admin Dose 2.5 MG; Start 06/01/18 at 12:30 Metronidazole (Flagyl) 500 mg Q8 PO Last administered on 06/03/18at 05:12; Admin Dose 500 MG; Start 06/01/18 at 14:00 Clonidine (Catapres) 0.1 mg Q6H PRN PO sbp>170 Last administered on 06/02/18at 21:51; Admin Dose 0.1 MG; Start 06/01/18 at 14:30 Hydralazine HCl (Apresoline) 10 mg Q4H PRN IV sbp>165 Last administered on 06/01/18at 15:56; Admin Dose 10 MG; Start 06/01/18 at 15:30 Topiramate (Topamax) 25 mg BID PO Last administered on 06/03/18at 08:28; Admin Dose 25 MG; Start 06/02/18 at 21:00 Lisinopril (Zestril) 40 mg BID PO ; Start 06/03/18 at 09:00; Status UNV Atenolol (Tenormin) 25 mg DAILY PO ; Start 06/03/18 at 09:00; Status UNV LAY PENA MD Jun 03, 2018 08:57
[2018-06-03] MEDS ORDERED: LISINOPRIL 20 MG TAB PO SCH (09:00)
[2018-06-03] MEDS ORDERED: ATENOLOL 25 MG TAB PO SCH (09:00)
[2018-06-03] MEDS: hydrALAzine 20 MG INJ IV PRN (21:38)
[2018-06-04] MEDS: ACCU-CHEK XX SCH (02:00)
[2018-06-04] MEDS: ACETAMINOPHEN 325 MG TAB PO PRN ×2 (02:03→08:16)
[2018-06-04 02:29] VITALS: BP 143/69; PULSE 103; RESP 18
[2018-06-04] MEDS: MEROPENEM 1 GM/50ML(PMX) 50 ML IVPB SCH ×3 (05:25→21:15)
[2018-06-04] MEDS: metroNIDAZOLE 500 MG TAB PO SCH ×3 (05:25→21:15)
[2018-06-04 07:37] VITALS: BP 165/91; PULSE 80; RESP 18
[2018-06-04] MEDS: INSULIN ASPART [NOVOLOG] 3 ML PEN SC SCH ×4 (07:50→21:00)
[2018-06-04] MEDS: TOPIRAMATE 25 MG TAB PO SCH ×2 (08:14→21:15)
[2018-06-04] MEDS: metFORMIN 500 MG TAB PO SCH (08:14)
[2018-06-04] MEDS: LISINOPRIL 20 MG TAB PO SCH ×2 (08:15→21:18)
[2018-06-04] MEDS: ATENOLOL 25 MG TAB PO SCH (08:15)
[2018-06-04 09:06] VITALS: BP 147/79; PULSE 85; RESP 18
[2018-06-04 14:37] VITALS: BP 130/69; PULSE 66; RESP 18
--- NOTE | 2018-06-04 15:12 | PN ---
Date/Time of Note Date/Time of Note DATE: 06/04/18 TIME: 15:02 Assessment/Plan VTE Prophylaxis Risk score (from Ns)>0 risk: 2 SCD applied (from Nsg): Yes Pharmacological prophylaxis: LMWH Lines/Catheters IV Catheter Type (from Nrsg): Saline Lock Urinary Cath still in place: No Assessment/Plan Assessment/Plan 1. Acute diverticulitis involving the mid to proximal descending colon with perforation, iv antibiotics since 05/29/2018, will advance diet, home tomorrow if tolerates diet 2. DM, on metfornin and ISS 3. HTN, controlled 4. Migraine headache, stable 5. Obesity 6. DVT prophylaxis: lovenox Result Diagram: 06/03/1843606/03/18436 Results 24hrs Laboratory Tests Test 06/03/18 17:46 06/03/18 20:15 06/04/18 08:13 06/04/18 12:44 Bedside Glucose 118 104 86 95 Subjective 24 Hr Interval Summary Free Text/Dictation no abdominal pain, afebrile. tolerates liquid diet Exam/Review of Systems Exam Vitals Vital Signs Date Temp Pulse Resp B/P (MAP) Pulse Ox O2 O2 Flow FiO2 Time Delivery Rate 06/04/18 98.3 66 18 130/69 100 Room Air 14:37 (89) Intake and Output 06/03/18 06/03/18 06/04/18 1515:00 23:00 07:00 IntakeIntake Total 50 ml 50 ml 450 ml OutputOutput Total 300 ml BalanceBalance 50 ml 50 ml 150 ml Constitutional: alert, oriented, well developed, obese Psych: no complaints, nl mood/affect Head: normocephalic, atraumatic Eyes: nl conjunctiva, EOMI, nl lids, PERRL ENMT: nl external ears & nose, nl lips & teeth, nl nasal mucosa & septum Neck: supple, non-tender Respiratory: clear to auscultation, normal air movement; No congested cough, No crackles/rales, No diminished breath sounds, No intercostal retraction, No labored breathing, No respirations, No tactile fremitus, No wheezing, No other Cardiovascular: regular rate and rhythm, nl pulses; No bruits, No diastolic murmur, No edema, No gallop, No irregular rhythm, No jugular venous distention (JVD), No murmurs/extra sounds, No rub, No systolic murmur, No S3, No S4, No other Gastrointestinal: soft, nl liver, spleen, non-tender Musculoskeletal: nl extremities to inspection Extremities: normal pulses; No calf tenderness, No cyanosis, No clubbing, No edema, No pitting pedal edema, No palpable cord, No tenderness, No other Neurological: [employer] II-XII intact, nl mental status, nl speech, nl strength Skin: nl turgor Lymph: nl lymph nodes Results Results 24hrs Laboratory Tests Test 06/03/18 17:46 06/03/18 20:15 06/04/18 08:13 06/04/18 12:44 Bedside Glucose 118 104 86 95 Medications Medication Current Medications Meropenem/Sodium Chloride 50 ml @ 100 mls/hr Q8 IVPB Last administered on 06/04/18at 13:30; Admin Dose 100 MLS/HR; Start 05/29/18 at 14:00 IV Flush (NS 3 ml) 3 ml PER PROTOCOL IV ; Start 05/29/18 at 12:00 Ondansetron HCl (Zofran Inj) 4 mg Q6H PRN IV NAUSEA/VOMITING Last administered on 05/31/18at 22:53; Admin Dose 4 MG; Start 05/29/18 at 12:00 Acetaminophen (Tylenol Supp) 650 mg Q6H PRN [place] .PAIN 1-3 OR TEMP; Start 05/29/18 at 12:00 Morphine Sulfate (morphine) 2 mg Q4H PRN IV .SEVERE PAIN 7-10 Last administered on 05/31/18at 20:43; Admin Dose 2 MG; Start 05/29/18 at 12:00 Acetaminophen (Tylenol Tab) 650 mg Q6H PRN PO MILD PAIN(1-3)OR ELEVATED TEMP Last administered on 06/04/18at 08:16; Admin Dose 650 MG; Start 05/29/18 at 12:30 Diagnostic Test (Pha) (Accu-Chek) 1 ea 02 XX Last administered on 06/01/18at 01:27; Admin Dose 1 EA; Start 05/31/18 at 02:00 Miscellaneous Information 1 ea NOTE XX ; Start 05/30/18 at 10:00 Glucose (Glutose) 15 gm Q15M PRN PO DECREASED GLUCOSE; Start 05/30/18 at 10:00 Glucose (Glutose) 22.5 gm Q15M PRN PO DECREASED GLUCOSE; Start 05/30/18 at 10:00 Dextrose (D50w Syringe) 25 ml Q15M PRN IV DECREASED GLUCOSE; Start 05/30/18 at 10:00 Dextrose (D50w Syringe) 50 ml Q15M PRN IV DECREASED GLUCOSE; Start 05/30/18 at 10:00 Glucagon (Glucagen) 1 mg Q15M PRN IM DECREASED GLUCOSE; Start 05/30/18 at 10:00 Glucose (Glutose) 15 gm Q15M PRN BUCCAL DECREASED GLUCOSE; Start 05/30/18 at 10:00 Insulin Aspart (Novolog Insulin Pen) NOVOLOG *MILD* ALGORITHM WITH MEALS BEDTIME SC ; Start 05/30/18 at 17:55 Metformin HCl (Glucophage) 500 mg WITH BREAKFAST PO Last administered on 06/04/18 08:14; Admin Dose 500 MG; Start 05/31/18 at 07:50 Sumatriptan Succinate (Imitrex) 25 mg PRN PRN PO HEADACHE Last administered on 06/01/18 22:03; Admin Dose 25 MG; Start 05/31/18 at 16:00 Metronidazole (Flagyl) 500 mg Q8 PO Last administered on 06/04/18 13:30; Admin Dose 500 MG; Start 06/01/18 at 14:00 Clonidine (Catapres) 0.1 mg Q6H PRN PO sbp>170 Last administered on 06/02/18 21:51; Admin Dose 0.1 MG; Start 06/01/18 at 14:30 Hydralazine HCl (Apresoline) 10 mg Q4H PRN IV sbp>165 Last administered on 06/03/18 21:38; Admin Dose 10 MG; Start 06/01/18 at 15:30 Topiramate (Topamax) 25 mg BID PO Last administered on 06/04/18 08:14; Admin Dose 25 MG; Start 06/02/18 at 21:00 Lisinopril (Zestril) 40 mg BID PO Last administered on 06/04/18 08:15; Admin Dose 40 MG; Start 06/03/18 at 21:00 Atenolol (Tenormin) 25 mg DAILY PO Last administered on 4/1/19at 08:15; Admin Dose 25 MG; Start 06/04/18 at 09:00 HARRISON GARDNER MD Jun 04, 2018 15:12
[2018-06-04] MEDS: ENOXAPARIN 40 MG/0.4 ML SYG SC SCH (15:31)
[2018-06-04 20:20] VITALS: BP 138/83; PULSE 76; RESP 17
[2018-06-05] MEDS: ACCU-CHEK XX SCH (01:59)
[2018-06-05 02:13] VITALS: BP 130/63; PULSE 74; RESP 17
[2018-06-05] MEDS: MEROPENEM 1 GM/50ML(PMX) 50 ML IVPB SCH ×2 (06:26→13:41)
[2018-06-05] MEDS: metroNIDAZOLE 500 MG TAB PO SCH ×2 (06:26→13:41)
[2018-06-05 07:43] VITALS: BP 141/88; PULSE 66; RESP 15
[2018-06-05] MEDS: INSULIN ASPART [NOVOLOG] 3 ML PEN SC SCH ×3 (07:50→17:42)
[2018-06-05] MEDS: metFORMIN 500 MG TAB PO SCH (08:28)
[2018-06-05] MEDS: TOPIRAMATE 25 MG TAB PO SCH (08:29)
[2018-06-05] MEDS: LISINOPRIL 20 MG TAB PO SCH (08:30)
[2018-06-05] MEDS: ATENOLOL 25 MG TAB PO SCH (08:30)
[2018-06-05 14:04] VITALS: BP 152/72; PULSE 68; RESP 16
[2018-06-05] MEDS: ENOXAPARIN 40 MG/0.4 ML SYG SC SCH (15:23)
[2018-06-05] MEDS ORDERED: LEVO500T48 PO (16:17)
[2018-06-05] MEDS ORDERED: METR500T PO (16:17)
[2018-06-05] MEDS ORDERED: LISI-471 PO (16:17)
[2018-06-05] MEDS ORDERED: ATEN-138 PO (16:17)
[2018-06-05] MEDS ORDERED: METF-849 PO (16:26)
--- NOTE | 2018-06-05 16:31 | DS ---
Date/Time of Note Date/Time of Note DATE: 06/05/18 TIME: 16:26 Discharge Summary Admission/Discharge Info Admit Date/Time May 29, 2018 at 11:32 Discharge Date/Time Discharge Diagnosis 1. Acute diverticulitis involving the mid to proximal descending colon with perforation, stable, oral antibiotics and follow up with PCP 2. DM, on metformin, follow up with PCP 3. HTN, controlled 4. Migraine headache, stable 5. Obesity Patient Condition: Stable Hospital Course 47 yo Lithuanian speaking female with a hx of migraine headaches presented to ER w/3 day duration of left lower quadrant abdominal pain associated with subjective fevers and headaches.Patient denies cp, sob, palpitation, n/v,diarrhea, constipation, melena,chills,dizziness, loss of consciousness or others. In ER pt has elevated WBC 13,300, TEMP 100.2,BP 177/[address] finding of acute colonic diverticulitis w/possible perforation. Patient has pain 10/10 on LLQ.She was given Zosyn,morphine 4mg and IVFs in ER.Surgery consult w/. requested from ER. Patient is treated with iv antibiotics with meropenem and flagyl, symptoms improved and patient tolerates diet well. Repeated CT scan on 06/01/2018 without significant changes. Patient will be on levaquin and flagyl for 7 more days. Instructions are given regarding diet, lifestyle modification, and follow up including elective colonoscopy. She is instructed to return back to hospital if she has fever or more abdominal pain. Home Meds Active Scripts Metformin* (Glucophage*) 500 Mg Tab, 500 MG PO WITH BREAKFAST for 30 Days, TAB Prov:HARRISON GARDNER MD 06/05/18 Metronidazole* (Flagyl*) 500 Mg Tablet, 500 MG PO Q8 for 7 Days, TAB Prov:HARRISON GARDNER MD 06/05/18 Levofloxacin* (Levaquin*) 500 Mg Tablet, 500 MG PO DAILY for 7 Days, TAB Prov:HARRISON GARDNER MD 06/05/18 Lisinopril* (Lisinopril*) 20 Mg Tablet, 40 MG PO BID for 30 Days, TAB Prov:HARRISON GARDNER MD 06/05/18 Atenolol (Tenormin) 25 Mg Tab, 25 MG PO DAILY for 30 Days, TAB Prov:HARRISON GARDNER MD 06/05/18 Reported Medications Ibuprofen* (Ibuprofen*) 200 Mg Capsule, 200 MG PO NEEDED PRN for PAIN, CAP 05/29/18 Aspirin/Acetaminophen/Caffeine (Excedrin Migraine Caplet) 1 Each Tablet, 1 EACH PO NEEDED, TAB 05/29/18 Discontinued Scripts Cephalexin* (Keflex*) 500 Mg Capsule, 500 MG PO QID for 7 Days, CAP Prov:GLORIA EUGENE PA-C 01/08/17 Penicillin V Potassium* (Penicillin V K*) 500 Mg Tab, 500 MG PO QID for 7 Days, TAB Prov:SHERYL CRANE MD 04/20/15 Hydrocodone Bit-Acetaminophen* ([place]*) 10-325 Mg Tablet, 1 TAB PO Q6 PRN for PAIN, #7 TAB Prov:SHERYL CRANE MD 04/20/15 Ibuprofen* (Motrin*) 600 Mg Tab, 600 MG PO Q6H PRN for PAIN AND OR ELEVATED TEMP, #30 TAB Prov:SHERYL CRANE MD 04/20/15 Follow-up Plan PCP in one week GI for elective colonoscopy in 6 weeks Primary Care Provider Care Physician No Primary Pending Labs Laboratory Tests Test 06/04/18 17:53 06/04/18 21:13 06/05/18 08:27 06/05/18 12:40 Bedside 84 98 100 95 Glucose mg/dL (70-220) mg/dL (70-220) mg/dL (70-220) mg/dL (70-220) HARRISON GARDNER MD Jun 05, 2018 16:31
== END 2018-06-05 18:38 | disposition home or self-care (01) | DRG 392 ==
LOC: E/R 08:33 → MS1 11:32
PROVIDERS: ADMIT Internal Medicine; ATTEND Internal Medicine
DX: K57.20 Diverticulitis of large intestine with perforation and abscess without bleeding (principal); I50.30 Unspecified diastolic (congestive) heart failure; R31.9 Hematuria, unspecified; E11.9 Type 2 diabetes mellitus without complications; I10 Essential (primary) hypertension; G43.909 Migraine, unspecified, not intractable, without status migrainosus; E66.9 Obesity, unspecified; Z68.35 Body mass index [BMI] 35.0-35.9, adult
CPT/HCPCS: 36415; 70450; 70551; 71045; 74176; 74178; 80048; 80053; 80061; 81001; 81003; 82962; 83036; 83605; 83690; 83735; 84100; 84484; 84703; 85025; 85610; 85651; 85730; 93005; 93306; 96374; 96375; J0360; J1170; J1815; J1885; J2185; J2270; J2405; J2543; J7030; Q9967